=== PATIENT | female | born 1950 | race African-American/Black ===

== ENCOUNTER 2017-01-11 10:15 | Emergency (ER) | payer MEDICAID ==
[~2017-01-11] VITALS: Ht 157.5 cm; Wt 123.0 kg
[~2017-01-11 10:15] MED LIST: ASPI-1035 PO; DICL75TA5 PO; INSU3INS6 SQ; JARDIANCE; LOSA50TA20 PO; PROT20 PO; SIMV20TA6 PO; SITA50TA3 PO
[2017-01-11 11:01] VITALS: BP 123/66
== END 2017-01-11 12:15 | disposition home or self-care (01) ==
LOC: ER 12:11
DX: I10 Essential (primary) hypertension (principal); K59.00 Constipation, unspecified; E11.9 Type 2 diabetes mellitus without complications; M19.90 Unspecified osteoarthritis, unspecified site; Z88.0 Allergy status to penicillin; Z79.82 Long term (current) use of aspirin; Z79.4 Long term (current) use of insulin; Z79.899 Other long term (current) drug therapy
CPT/HCPCS: 99283; Z7610

== ENCOUNTER 2017-09-11 10:16 | Emergency (ER) | payer MEDICARE, MEDICAID ==
[~2017-09-11] VITALS: Ht 152.4 cm; Wt 123.0 kg
[~2017-09-11 10:16] MED LIST changes: -ASPI-1035 PO; +ASPI-1159 PO
[2017-09-11] MEDS ORDERED: ALBUTEROL (0.083%) 2.5MG/3ML NEB HHN STA (11:06)
[2017-09-11] MEDS ORDERED: IPRATROPIUM BROMIDE (0.02%) 0.5MG/2.5ML NEB HHN STA (11:06)
[2017-09-11 11:50] LABS: BASOPHILS % 0.6 % (0.0-2.0); EOSINOPHILS % 2.5 % (0.0-5.0); HEMATOCRIT. 42.8 % (36.0-48.0); HEMOGLOBIN. 13.1 g/dL (12.0-16.0); LYMPHOCYTES % 11.9 % (20.0-50.0); MEAN CORPUSCULAR HEMOGLOBIN 22.5 pg (28.0-32.0); MEAN CORPUSCULAR VOLUME 73.3 fL (81.0-99.0); MEAN PLATELET VOLUME 10.8 fl (7.4-10.4); MONOCYTES % 4.9 % (2.0-8.0); NEUTROPHILS % 80.1 % (40.0-76.0); PLATELET 205 x1000/uL (130-400); RED BLOOD CELL COUNT 5.84 mill/uL (4.2-5.4); RED CELL DISTRIBUTION WIDTH 15.9 % (11.6-14.6)
[2017-09-11 12:07] LABS: CARBON DIOXIDE 36 mEq/L (21-32); CHLORIDE 103 mEq/L (98-107); TROPONIN I < 0.02 ng/mL (0.00-0.04)
[2017-09-11 13:01] VITALS: BP 184/55
[2017-09-11] MEDS ORDERED: METHYLPREDNISOLONE SOD SUCC 125 MG/2 ML VIAL IV ONE (13:30)
[2017-09-11] MEDS ORDERED: PREDNISONE 20MG TABLET PO ONE (13:45)
[2017-09-11] MEDS ORDERED: IPRATROPIUM/ALBUTEROL 0.5-3(2.5)MG/3ML NEB HHN ONE (13:45)
[2017-09-11 14:10] LABS: CLARITY URINE CLEAR (CLEAR); COLOR URINE YELLOW (YELLOW); KETONES URINE NEGATIVE (NEGATIVE); LEUKOCYTE ESTERASE URINE NEGATIVE (NEGATIVE); NITRITE URINE NEGATIVE (NEGATIVE); OCCULT BLOOD URINE 2+ (NEGATIVE); PROTEIN URINE 2+ (NEGATIVE); SPECIFIC GRAVITY URINE 1.015 (1.005-1.030); UROBILINOGEN URINE 0.2 E.U./dL (0.2-1.0)
== END 2017-09-11 15:00 | disposition home or self-care (01) ==
LOC: ER 12:23
DX: J45.909 Unspecified asthma, uncomplicated (principal); I10 Essential (primary) hypertension; E11.9 Type 2 diabetes mellitus without complications; M19.90 Unspecified osteoarthritis, unspecified site; Z88.0 Allergy status to penicillin; Z79.4 Long term (current) use of insulin; Z79.82 Long term (current) use of aspirin
CPT/HCPCS: 36415; 71045; 80053; 81001; 83605; 83690; 83880; 84484; 85025; 85610; 87040; 93005; 94640; 99285; J7512; J7611; J7620

== ENCOUNTER 2020-05-19 05:34 | Inpatient (IN) | payer MEDICARE, MEDICAID ==
[~2020-05-19] VITALS: Ht 157.5 cm; Wt 122.5 kg
[~2020-05-19 05:34] MED LIST changes: -ASPI-1159 PO; +ASPI-1497 PO; +BENA40TA9 PO; +BIMA5DRO TP; +HYDR12.529 PO; +LIRA0.6P SQ; -LOSA50TA20 PO; +LOSA50TA41 PO; +SIMV-43 PO; -SIMV20TA6 PO
[2020-05-19] MEDS ORDERED: ONDANSETRON HCL 4MG/2ML INJ IV STA (06:28)
[2020-05-19] MEDS ORDERED: KETOROLAC 30MG/ML VIAL IV STA (06:28)
[2020-05-19 07:16] LABS: HEMATOCRIT. 37.3 % (36.0-48.0); HEMOGLOBIN. 11.6 g/dL (12.0-16.0); MEAN CORPUSCULAR HEMOGLOBIN 22.6 pg (28.0-32.0); MEAN CORPUSCULAR VOLUME 72.8 fL (81.0-99.0); MEAN PLATELET VOLUME 10.9 fl (7.4-10.4); PLATELET 162 x1000/uL (130-400); RED BLOOD CELL COUNT 5.13 mill/uL (4.2-5.4); RED CELL DISTRIBUTION WIDTH 15.8 % (11.6-14.6)
[2020-05-19 07:27] LABS: CHLORIDE 98 mEq/L (98-107)
[2020-05-19 07:37] LABS: PROTHROMBIN TIME 10.3 sec (9.6-11.0)
[2020-05-19 07:40] LABS: PLATELET ESTIMATE NORMAL
[2020-05-19] MEDS ORDERED: SODIUM CHLORIDE 0.9% 1,000 ML IV ONE (07:54)
[2020-05-19 08:27] LABS: CLARITY URINE CLEAR (CLEAR); COLOR URINE YELLOW (YELLOW); KETONES URINE NEGATIVE (NEGATIVE); LEUKOCYTE ESTERASE URINE NEGATIVE (NEGATIVE); NITRITE URINE NEGATIVE (NEGATIVE); OCCULT BLOOD URINE 2+ (NEGATIVE); PH URINE 5.5 (4.5-8.0); PROTEIN URINE 3+ (NEGATIVE); SPECIFIC GRAVITY URINE 1.018 (1.005-1.030)
[2020-05-19 09:30] LABS: PROTHROMBIN TIME 10.5 sec (9.6-11.0)
[2020-05-19] MEDS ORDERED: LEVOFLOXACIN 750MG PREMIX 150 ML IV ONE (09:30)
[2020-05-19] MEDS ORDERED: DEXTROSE 50% WATER 50ML SYRINGE IV PRN (10:45)
[2020-05-19] MEDS ORDERED: ACETAMINOPHEN 650MG SUPP PR PRN (10:45)
[2020-05-19] MEDS ORDERED: MAGNESIUM/ALUMINUM HYDROXIDE/SIMETHICONE 30ML UDC PO PRN (10:45)
[2020-05-19] MEDS ORDERED: HYDROCODONE/ACETAMINOPHEN 5/325MG TABLET PO PRN (10:45)
[2020-05-19] MEDS ORDERED: LORAZEPAM 0.5MG TABLET PO PRN (10:45)
[2020-05-19] MEDS ORDERED: GUAIFENESIN 200MG/10ML SUGAR FREE UDC PO PRN (10:45)
[2020-05-19] MEDS ORDERED: DOCUSATE SODIUM 100MG CAPSULE PO PRN (10:45)
[2020-05-19] MEDS ORDERED: NA PHOS,M-B/NA PHOS,DI-BA ENEMA 118ML PR PRN (10:45)
[2020-05-19] MEDS ORDERED: DIPHENHYDRAMINE 50MG/ML VIAL IV PRN (10:45)
[2020-05-19] MEDS ORDERED: LEVOFLOXACIN 500MG PREMIX 100 ML IV SCH (10:45)
[2020-05-19] MEDS ORDERED: IPRATROPIUM/ALBUTEROL 0.5-3(2.5)MG/3ML NEB NEB PRN (10:45)
[2020-05-19] MEDS ORDERED: ONDANSETRON HCL 4MG/2ML INJ IV PRN (10:45)
[2020-05-19 11:00] VITALS: BP 157/37
[2020-05-19 11:01] VITALS: BP 157/37
[2020-05-19 12:00] VITALS: BP_SYST 157; BP_SYST 189; BP_DIAS 37
[2020-05-19] MEDS: BLOOD SUGAR DIAGNOSTIC STRIP TEST SCH ×3 (12:14→22:29)
[2020-05-19] MEDS: ENOXAPARIN 30MG/0.3ML SYR SUBCUT SCH ×2 (12:44→22:29)
[2020-05-19] MEDS: INSULIN LISPRO 100 UNITS/ML SUBCUT SCH ×3 (12:45→22:38)
[2020-05-19] MEDS: SODIUM CHLORIDE 0.9% 1,000 ML IV SCH (13:15)
[2020-05-19] MEDS: AMLODIPINE 5MG TABLET PO SCH (15:50)
[2020-05-19 16:00] VITALS: BP 145/46
[2020-05-19 20:00] VITALS: BP 160/68
[2020-05-19] MEDS: FAMOTIDINE 20MG TABLET PO SCH (22:29)
[2020-05-20] VITALS: BP 158/66
[2020-05-20 01:58] LABS: *AMPHETAMINES SCREEN URINE NEGATIVE (NEGATIVE); *BARBITURATES SCREEN URINE NEGATIVE (NEGATIVE); *BENZODIAZEPINES SCREEN URINE NEGATIVE (NEGATIVE); *COCAINE SCREEN URINE NEGATIVE (NEGATIVE)
[2020-05-20 01:59] LABS: CANNABINOID URINE SCREEN NEGATIVE (NEGATIVE); METHADONE URINE SCREEN NEGATIVE (NEGATIVE); OPIATES URINE SCREEN NEGATIVE (NEGATIVE); PHENCYCLIDINE URINE SCREEN NEGATIVE (NEGATIVE)
[2020-05-20] MEDS: SODIUM CHLORIDE 0.9% 1,000 ML IV SCH ×2 (01:59→12:40)
[2020-05-20] MEDS: ACETAMINOPHEN 325MG TABLET PO PRN ×3 (01:59→20:45)
[2020-05-20 04:00] VITALS: BP 141/56
[2020-05-20 05:53] LABS: BASOPHILS % 0.6 % (0.0-2.0); EOSINOPHILS % 5.5 % (0.0-5.0); HEMATOCRIT. 33.3 % (36.0-48.0); HEMOGLOBIN. 10.5 g/dL (12.0-16.0); LYMPHOCYTES % 11.5 % (20.0-50.0); MEAN CORPUSCULAR HEMOGLOBIN 22.8 pg (28.0-32.0); MEAN CORPUSCULAR VOLUME 72.6 fL (81.0-99.0); MEAN PLATELET VOLUME 11.8 fl (7.4-10.4); NEUTROPHILS % 75.4 % (40.0-76.0); PLATELET 153 x1000/uL (130-400); RED BLOOD CELL COUNT 4.58 mill/uL (4.2-5.4); RED CELL DISTRIBUTION WIDTH 16.2 % (11.6-14.6)
[2020-05-20 05:59] LABS: CHLORIDE 104 mEq/L (98-107)
[2020-05-20 06:09] LABS: LDL CHOLESTEROL 50 mg/dL (5-100)
[2020-05-20] MEDS: BLOOD SUGAR DIAGNOSTIC STRIP TEST SCH ×3 (06:09→20:43)
[2020-05-20 06:11] LABS: HDL CHOLESTEROL 50 mg/dL (40-59); T4 FREE 1.26 ng/dL (0.76-1.46)
[2020-05-20 08:00] VITALS: BP 150/60
[2020-05-20] MEDS: INSULIN LISPRO 100 UNITS/ML SUBCUT SCH ×4 (08:48→20:42)
[2020-05-20] MEDS: ENOXAPARIN 30MG/0.3ML SYR SUBCUT SCH ×2 (08:49→20:42)
[2020-05-20] MEDS: AMLODIPINE 5MG TABLET PO SCH (08:49)
[2020-05-20] MEDS ORDERED: LEVOFLOXACIN 750MG PREMIX 150 ML IV SCH (09:00)
[2020-05-20] MEDS ORDERED: ALBU6.7H9 INH (10:58)
[2020-05-20 12:00] VITALS: BP 175/70
[2020-05-20] MEDS: CLONIDINE 0.1MG TABLET PO PRN (12:39)
[2020-05-20] MEDS ORDERED: LATA2.5D2 EACHEYE (13:18)
[2020-05-20] MEDS ORDERED: AZOPT EACHEYE (13:18)
[2020-05-20] MEDS ORDERED: OLOP2.5D5 EACHEYE (13:18)
[2020-05-20 15:41] LABS: BG BASE EXCESS 0.2 mmol/L (-2.0-2.0); BG CARBOXYHEMOGLOBIN 0.6 % (0.5-1.5); BG HCO3 ACT 25.4 mmol/L (22.0-26.0); BG METHEMOGLOBIN 0.3 % (0.0-1.5); BG OXYGEN SATURATION 88.9 % (92.0-98.5); BG OXYHEMOGLOBIN 88.1 % (94.0-97.0); BG PCO2 43.6 mmHg (35.0-45.0); BG PH 7.384 (7.350-7.450); BG PO2 56.2 mmHg (75.0-100.0); BG SAMPLE SITE RIGHT BRACHIAL; BG TOTAL HEMOGLOBIN 11.8 g/dL (12.0-18.0); BG VENT MODE ROOM AIR
[2020-05-20 16:35] VITALS: BP 135/76
[2020-05-20 20:00] VITALS: BP 156/66
[2020-05-20] MEDS: FAMOTIDINE 20MG TABLET PO SCH (20:42)
[2020-05-20] MEDS ORDERED: LATANOPROST 0.005% OPHTH DROPS 2.5ML EACHEYE SCH (21:00)
[2020-05-21] VITALS: BP 144/46
[2020-05-21] MEDS: SODIUM CHLORIDE 0.9% 1,000 ML IV SCH ×2 (02:45→16:05)
[2020-05-21 04:00] VITALS: BP 166/56
[2020-05-21] MEDS: ACETAMINOPHEN 325MG TABLET PO PRN ×2 (04:42→14:01)
[2020-05-21] MEDS: CLONIDINE 0.1MG TABLET PO PRN (04:42)
[2020-05-21] MEDS: BLOOD SUGAR DIAGNOSTIC STRIP TEST SCH ×2 (07:32→12:12)
[2020-05-21 08:13] VITALS: BP 156/43
[2020-05-21] MEDS: INSULIN LISPRO 100 UNITS/ML SUBCUT SCH ×2 (08:32→12:13)
[2020-05-21] MEDS: AMLODIPINE 5MG TABLET PO SCH (08:33)
[2020-05-21] MEDS: ENOXAPARIN 30MG/0.3ML SYR SUBCUT SCH (08:33)
[2020-05-21 09:45] LABS: BASOPHILS % 0.3 % (0.0-2.0); HEMATOCRIT. 31.1 % (36.0-48.0); HEMOGLOBIN. 9.8 g/dL (12.0-16.0); LYMPHOCYTES % 9.6 % (20.0-50.0); MEAN CORPUSCULAR HEMOGLOBIN 22.8 pg (28.0-32.0); MEAN CORPUSCULAR VOLUME 72.2 fL (81.0-99.0); MONOCYTES % 7.3 % (2.0-8.0); NEUTROPHILS % 78.8 % (40.0-76.0); PLATELET 143 x1000/uL (130-400); RED CELL DISTRIBUTION WIDTH 15.7 % (11.6-14.6)
[2020-05-21 10:03] LABS: CHLORIDE 106 mEq/L (98-107)
[2020-05-21 11:58] VITALS: BP 155/47
[2020-05-21] MEDS ORDERED: HYDR-4134 MT (13:02)
[2020-05-21] MEDS ORDERED: AMLO5TAB4 MT (13:02)
[2020-05-21] MEDS ORDERED: METR500T PO (13:02)
[2020-05-21] MEDS ORDERED: CIPR-264 MT (13:02)
[2020-05-21] MEDS ORDERED: HYDRALAZINE HCL 50MG TABLET PO SCH (14:00)
[2020-05-21 14:30] LABS: TOTAL IRON BINDING CAPACITY 297 ug/dL (250-450)
[2020-05-21 15:16] VITALS: BP 154/51
== END 2020-05-21 16:28 | disposition home or self-care (01) | DRG 139 ==
LOC: ER 05:48 → EDBEDREQ 09:22 → EDBEDREQSVC 09:22 → ENRESERV 10:10 → SUPCPDRO 10:45 → 7WST 10:58 → 6WST 05-20 16:27
PROVIDERS: ADMIT Internal Medicine; ATTEND Internal Medicine
DX: J18.9 Pneumonia, unspecified organism (principal); K52.9 Noninfective gastroenteritis and colitis, unspecified; D50.9 Iron deficiency anemia, unspecified; E11.22 Type 2 diabetes mellitus with diabetic chronic kidney disease; E11.51 Type 2 diabetes mellitus with diabetic peripheral angiopathy without gangrene; E11.65 Type 2 diabetes mellitus with hyperglycemia; E78.00 Pure hypercholesterolemia, unspecified; E78.5 Hyperlipidemia, unspecified; E87.1 Hypo-osmolality and hyponatremia; I12.9 Hypertensive chronic kidney disease with stage 1 through stage 4 chronic kidney disease, or unspecified chronic kidney disease; K80.21 Calculus of gallbladder without cholecystitis with obstruction; M19.90 Unspecified osteoarthritis, unspecified site; N18.9 Chronic kidney disease, unspecified; K21.9 Gastro-esophageal reflux disease without esophagitis; R06.03 Acute respiratory distress; E66.2 Morbid (severe) obesity with alveolar hypoventilation; R31.9 Hematuria, unspecified; Z20.828 Contact with and (suspected) exposure to other viral communicable diseases; Z79.84 Long term (current) use of oral hypoglycemic drugs; Z88.0 Allergy status to penicillin; Z88.8 Allergy status to other drugs, medicaments and biological substances; Z79.4 Long term (current) use of insulin; Z79.82 Long term (current) use of aspirin; Z79.899 Other long term (current) drug therapy; Z68.42 Body mass index [BMI] 45.0-49.9, adult; S89.91XA Unspecified injury of right lower leg, initial encounter
CPT/HCPCS: 36415; 36600; 71045; 73560; 74176; 76700; 80053; 80061; 80305; 81003; 82375; 82728; 82805; 82962; 83036; 83540; 83550; 83605; 84145; 84439; 84443; 84484; 85025; 87635; 93005; 93971; 99285; J1650; J1815; J1885; J1956; J2405; J7030

== ENCOUNTER 2020-05-22 06:42 | Inpatient (IN) | payer MEDICARE, MEDICAID ==
[~2020-05-22] VITALS: Ht 157.5 cm; Wt 126.1 kg
[~2020-05-22 06:42] MED LIST changes: +ALBU6.7H9 INH; +AMLO5TAB4 MT; +AZOPT EACHEYE; -BENA40TA9 PO; +CIPR-264 MT; +HYDR-4134 MT; +LATA2.5D2 EACHEYE; -LOSA50TA41 PO; +METR500T PO; +OLOP2.5D5 EACHEYE
[2020-05-22 07:29] LABS: HEMATOCRIT. 30.9 % (36.0-48.0); HEMOGLOBIN. 9.6 g/dL (12.0-16.0); MEAN CORPUSCULAR HEMOGLOBIN 22.8 pg (28.0-32.0); MEAN CORPUSCULAR VOLUME 73.5 fL (81.0-99.0); MEAN PLATELET VOLUME 11.3 fl (7.4-10.4); PLATELET 163 x1000/uL (130-400); RED CELL DISTRIBUTION WIDTH 15.9 % (11.6-14.6)
[2020-05-22 07:35] LABS: CHLORIDE 99 mEq/L (98-107)
[2020-05-22 09:35] VITALS: BP_SYST 150; BP_SYST 175; BP_DIAS 54
[2020-05-22 09:41] LABS: PLATELET ESTIMATE NORMAL
[2020-05-22] MEDS ORDERED: LIDOCAINE HCL/PF 1% 2ML VIAL ONE (10:16)
[2020-05-22] MEDS ORDERED: DEXTROSE 50% WATER 50ML SYRINGE IV PRN (11:00)
[2020-05-22] MEDS ORDERED: ACETAMINOPHEN 650MG/20.3ML UDC PO PRN (11:00)
[2020-05-22] MEDS ORDERED: ACETAMINOPHEN 325MG TABLET PO PRN ×2 (11:15)
[2020-05-22] MEDS ORDERED: CLONIDINE 0.1MG TABLET PO PRN (11:15)
[2020-05-22] MEDS: ENOXAPARIN 30MG/0.3ML SYR SUBCUT SCH ×2 (11:18→21:08)
[2020-05-22] MEDS: BLOOD SUGAR DIAGNOSTIC STRIP TEST SCH ×3 (11:23→21:08)
[2020-05-22] MEDS: ACETAMINOPHEN 325MG TABLET PO PRN ×2 (11:27→18:19)
[2020-05-22] MEDS ORDERED: DEXAMETHASONE 4MG/ML 1ML VIAL IV SCH (11:30)
[2020-05-22 12:00] VITALS: BP 136/33
[2020-05-22] MEDS ORDERED: CEFEPIME HCL 2000MG/VIAL INJ IV ONE (12:45)
[2020-05-22] MEDS ORDERED: ONDANSETRON HCL 4MG/2ML INJ IV PRN (13:00)
[2020-05-22] MEDS: INSULIN LISPRO 100 UNITS/ML SUBCUT SCH ×3 (13:15→21:20)
[2020-05-22] MEDS ORDERED: AZITHROMYCIN 500 MG in DEXT 5% WATER 250 ML IV SCH (14:00)
[2020-05-22 14:38] LABS: BG BASE EXCESS -0.5 mmol/L (-2.0-2.0); BG CARBOXYHEMOGLOBIN 0.7 % (0.5-1.5); BG DEOXYHEMOGLOBIN 38.2 % (0.0-5.0); BG FRACTION INSPIRED OXYGEN 21; BG HCO3 ACT 24.5 mmol/L (22.0-26.0); BG METHEMOGLOBIN 0.3 % (0.0-1.5); BG OXYGEN SATURATION 61.4 % (92.0-98.5); BG OXYHEMOGLOBIN 60.8 % (94.0-97.0); BG PCO2 41.7 mmHg (35.0-45.0); BG PH 7.387 (7.350-7.450); BG PO2 32.3 mmHg (75.0-100.0); BG SAMPLE SITE RIGHT RADIAL; BG TOTAL HEMOGLOBIN 10.3 g/dL (12.0-18.0); BG VENT MODE ROOM AIR
[2020-05-22] MEDS ORDERED: HYDROCODONE/ACETAMINOPHEN 5/325MG TABLET PO PRN (15:45)
[2020-05-22] MEDS ORDERED: DIPHENHYDRAMINE 50MG/ML VIAL IV PRN (15:45)
[2020-05-22] MEDS ORDERED: LORAZEPAM 2MG/ML CPJ IV PRN (15:45)
[2020-05-22] MEDS ORDERED: LACTULOSE 20G/30ML UDC PO PRN (15:45)
[2020-05-22 16:00] VITALS: BP 151/51
[2020-05-22] MEDS: FUROSEMIDE 40MG/4ML VIAL IVP SCH (16:44)
[2020-05-22 17:35] LABS: D-DIMER 2.2 mg/L FEU (<0.50); INR 1.1; PROTHROMBIN TIME 11.5 sec (9.6-11.0)
[2020-05-22] MEDS: LEVOFLOXACIN 500MG PREMIX 100 ML IV SCH (18:00)
[2020-05-22] MEDS ORDERED: LEVOFLOXACIN 500MG PREMIX 100 ML IV SCH (18:00)
[2020-05-22 18:50] LABS: CLARITY URINE CLEAR (CLEAR); COLOR URINE DARK YELLOW (YELLOW); KETONES URINE TRACE (NEGATIVE); LEUKOCYTE ESTERASE URINE TRACE (NEGATIVE); NITRITE URINE NEGATIVE (NEGATIVE); OCCULT BLOOD URINE TRACE (NEGATIVE); PROTEIN URINE 2+ (NEGATIVE); SPECIFIC GRAVITY URINE 1.025 (1.005-1.030)
[2020-05-22 20:34] VITALS: BP 145/49
[2020-05-22 22:17] LABS: BG BASE EXCESS 3.3 mmol/L (-2.0-2.0); BG CARBOXYHEMOGLOBIN 0.8 % (0.5-1.5); BG DEOXYHEMOGLOBIN 13.2 % (0.0-5.0); BG FRACTION INSPIRED OXYGEN 100; BG HCO3 ACT 29.5 mmol/L (22.0-26.0); BG METHEMOGLOBIN 0.1 % (0.0-1.5); BG OXYGEN SATURATION 86.7 % (92.0-98.5); BG OXYHEMOGLOBIN 85.9 % (94.0-97.0); BG PCO2 52.2 mmHg (35.0-45.0); BG PO2 53.1 mmHg (75.0-100.0); BG SAMPLE SITE RIGHT RADIAL; BG TOTAL HEMOGLOBIN 12.1 g/dL (12.0-18.0); BG VENT MODE MASK - NRB
[2020-05-22] MEDS: FUROSEMIDE 40MG/4ML VIAL IVP NR (22:55)
[2020-05-23] VITALS (13 sets, daily range): BP systolic 121–176; BP diastolic 50–72
[2020-05-23] MEDS: DEXAMETHASONE 10 MG/ML VIAL IV SCH ×4 (00:03→17:23)
[2020-05-23] MEDS: FUROSEMIDE 40MG/4ML VIAL IVP SCH ×3 (00:03→15:42)
[2020-05-23] MEDS: LOSARTAN POTASSIUM 50 MG TABLET PO SCH ×2 (00:03→09:38)
[2020-05-23] MEDS: ACETAMINOPHEN 325MG TABLET PO PRN ×2 (05:48→19:37)
[2020-05-23] MEDS: BLOOD SUGAR DIAGNOSTIC STRIP TEST SCH ×4 (07:47→21:00)
[2020-05-23] MEDS: INSULIN LISPRO 100 UNITS/ML SUBCUT SCH ×4 (07:58→23:15)
[2020-05-23 08:56] LABS: HEMATOCRIT. 31.2 % (36.0-48.0); HEMOGLOBIN. 9.9 g/dL (12.0-16.0); MEAN CORPUSCULAR HEMOGLOBIN 23.1 pg (28.0-32.0); MEAN CORPUSCULAR VOLUME 72.8 fL (81.0-99.0); MEAN PLATELET VOLUME 11.1 fl (7.4-10.4); PLATELET 169 x1000/uL (130-400); RED BLOOD CELL COUNT 4.29 mill/uL (4.2-5.4); RED CELL DISTRIBUTION WIDTH 16.1 % (11.6-14.6)
[2020-05-23] MEDS ORDERED: DEXAMETHASONE 4MG/ML 1ML VIAL IV SCH (09:00)
[2020-05-23] MEDS: ENOXAPARIN 30MG/0.3ML SYR SUBCUT SCH ×2 (09:34→23:12)
[2020-05-23 09:44] LABS: BG BASE EXCESS 5.4 mmol/L (-2.0-2.0); BG CARBOXYHEMOGLOBIN 0.2 % (0.5-1.5); BG DEOXYHEMOGLOBIN 23.9 % (0.0-5.0); BG FRACTION INSPIRED OXYGEN 100; BG HCO3 ACT 31.5 mmol/L (22.0-26.0); BG METHEMOGLOBIN 0.1 % (0.0-1.5); BG OXYHEMOGLOBIN 75.8 % (94.0-97.0); BG PCO2 54.1 mmHg (35.0-45.0); BG PH 7.383 (7.350-7.450); BG PO2 41.7 mmHg (75.0-100.0); BG SAMPLE SITE RIGHT RADIAL; BG TOTAL HEMOGLOBIN 10.8 g/dL (12.0-18.0); BG VENT MODE MASK - NRB
[2020-05-23 12:57] LABS: BG BASE EXCESS 3.7 mmol/L (-2.0-2.0); BG CARBOXYHEMOGLOBIN 0.6 % (0.5-1.5); BG DEOXYHEMOGLOBIN 6.2 % (0.0-5.0); BG FRACTION INSPIRED OXYGEN 100; BG HCO3 ACT 28.3 mmol/L (22.0-26.0); BG METHEMOGLOBIN 0.2 % (0.0-1.5); BG OXYGEN SATURATION 93.8 % (92.0-98.5); BG PCO2 42.6 mmHg (35.0-45.0); BG PO2 65.3 mmHg (75.0-100.0); BG SAMPLE SITE RIGHT RADIAL; BG TOTAL HEMOGLOBIN 11.1 g/dL (12.0-18.0)
[2020-05-23 18:44] LABS: PLATELET ESTIMATE NORMAL
[2020-05-23] MEDS ORDERED: INSULIN GLARGINE UD 100 UNITS/ML SYR SUBCUT SCH (22:00)
[2020-05-23] MEDS: FUROSEMIDE 40MG/4ML VIAL IVP NR (23:12)
[2020-05-24] VITALS (13 sets, daily range): BP systolic 131–204; BP diastolic 42–123
[2020-05-24] MEDS ORDERED: VANCOMYCIN 2,000 MG in DEXT 5% WATER 500 ML IV NR ×2
[2020-05-24] MEDS: AZITHROMYCIN 500 MG in DEXT 5% WATER 250 ML IV SCH ×2 (00:37→23:09)
[2020-05-24] MEDS: DEXAMETHASONE 10 MG/ML VIAL IV SCH ×3 (00:37→12:00)
[2020-05-24] MEDS: FUROSEMIDE 40MG/4ML VIAL IVP SCH ×5 (00:38→23:09)
[2020-05-24] MEDS: BLOOD SUGAR DIAGNOSTIC STRIP TEST SCH ×4 (08:22→20:41)
[2020-05-24] MEDS: LOSARTAN POTASSIUM 50 MG TABLET PO SCH (08:56)
[2020-05-24] MEDS: ACETAMINOPHEN 325MG TABLET PO PRN (08:56)
[2020-05-24] MEDS: ENOXAPARIN 30MG/0.3ML SYR SUBCUT SCH ×2 (08:58→20:51)
[2020-05-24] MEDS: INSULIN LISPRO 100 UNITS/ML SUBCUT SCH ×4 (09:00→20:56)
[2020-05-24] MEDS ORDERED: LIDOCAINE HCL/PF 1% 2ML VIAL ONE (09:30)
[2020-05-24] MEDS ORDERED: VANCOMYCIN 1250MG in DEXTROSE 5% WATER 250ML IV SCH (12:00)
[2020-05-24] MEDS ORDERED: LIDOCAINE HCL 1% 20ML VIAL (Pyxis) INJ ONE (13:20)
[2020-05-24 16:19] LABS: BG BASE EXCESS 8.8 mmol/L (-2.0-2.0); BG CARBOXYHEMOGLOBIN 0.3 % (0.5-1.5); BG HCO3 ACT 34.1 mmol/L (22.0-26.0); BG METHEMOGLOBIN 0.1 % (0.0-1.5); BG OXYHEMOGLOBIN 97.6 % (94.0-97.0); BG PCO2 50.3 mmHg (35.0-45.0); BG PH 7.449 (7.350-7.450); BG PO2 117.5 mmHg (75.0-100.0); BG SAMPLE SITE LEFT RADIAL; BG TOTAL HEMOGLOBIN 11.4 g/dL (12.0-18.0); BG VENT MODE MASK - NRB
[2020-05-24 16:24] LABS: HEMATOCRIT. 32.7 % (36.0-48.0); HEMOGLOBIN. 10.4 g/dL (12.0-16.0); MEAN CORPUSCULAR HEMOGLOBIN 22.8 pg (28.0-32.0); MEAN CORPUSCULAR VOLUME 71.6 fL (81.0-99.0); MEAN PLATELET VOLUME 10.8 fl (7.4-10.4); PLATELET 233 x1000/uL (130-400); RED BLOOD CELL COUNT 4.56 mill/uL (4.2-5.4); RED CELL DISTRIBUTION WIDTH 16.1 % (11.6-14.6)
[2020-05-24 16:35] LABS: CHLORIDE 97 mEq/L (98-107)
[2020-05-24 17:13] LABS: NUCLEATED RED BLOOD CELLS 1 /100 WBC; PLATELET ESTIMATE NORMAL
[2020-05-24] MEDS: LEVOFLOXACIN 500MG PREMIX 100 ML IV SCH (17:33)
[2020-05-24] MEDS: METHYLPREDNISOLONE SOD SUCC 40 MG/ML VIAL IV SCH ×2 (17:33→23:09)
[2020-05-24] MEDS: CLONIDINE 0.2MG TABLET PO PRN (20:07)
[2020-05-24] MEDS: VANCOMYCIN 1 G PREMIX 200 ML IV SCH (20:51)
[2020-05-24] MEDS: LATANOPROST 0.005% OPHTH DROPS 2.5ML BOTHEYE SCH (21:14)
[2020-05-24] MEDS: HYDRALAZINE HCL 50MG TABLET PO SCH (21:19)
[2020-05-24] MEDS: INSULIN GLARGINE UD 100 UNITS/ML SYR SUBCUT SCH (22:23)
[2020-05-25] VITALS (12 sets, daily range): BP systolic 98–175; BP diastolic 39–109
[2020-05-25] MEDS: HYDRALAZINE HCL 50MG TABLET PO SCH (06:07)
[2020-05-25] MEDS: ENOXAPARIN 30MG/0.3ML SYR SUBCUT SCH ×2 (08:25→21:02)
[2020-05-25] MEDS: FUROSEMIDE 40MG/4ML VIAL IVP SCH (08:25)
[2020-05-25] MEDS: LOSARTAN POTASSIUM 50 MG TABLET PO SCH (08:25)
[2020-05-25] MEDS: METHYLPREDNISOLONE SOD SUCC 40 MG/ML VIAL IV SCH ×2 (08:25→16:18)
[2020-05-25] MEDS: INSULIN LISPRO 100 UNITS/ML SUBCUT SCH ×4 (08:27→20:54)
[2020-05-25] MEDS: BLOOD SUGAR DIAGNOSTIC STRIP TEST SCH ×4 (08:28→20:14)
[2020-05-25] MEDS: INSULIN GLARGINE UD 100 UNITS/ML SYR SUBCUT SCH ×2 (09:29→21:13)
[2020-05-25 10:36] LABS: BG BASE EXCESS 8.4 mmol/L (-2.0-2.0); BG CARBOXYHEMOGLOBIN 0.3 % (0.5-1.5); BG DEOXYHEMOGLOBIN 4.4 % (0.0-5.0); BG FRACTION INSPIRED OXYGEN 32; BG HCO3 ACT 33.6 mmol/L (22.0-26.0); BG METHEMOGLOBIN 0.3 % (0.0-1.5); BG OXYGEN SATURATION 95.6 % (92.0-98.5); BG PCO2 49.6 mmHg (35.0-45.0); BG PH 7.449 (7.350-7.450); BG PO2 78.5 mmHg (75.0-100.0); BG SAMPLE SITE RIGHT BRACHIAL; BG VENT MODE NASAL CANNULA
[2020-05-25 11:13] LABS: CHLORIDE 93 mEq/L (98-107)
[2020-05-25 11:15] LABS: BASOPHILS % 0.2 % (0.0-2.0); HEMATOCRIT. 33.6 % (36.0-48.0); HEMOGLOBIN. 10.7 g/dL (12.0-16.0); LYMPHOCYTES % 9.2 % (20.0-50.0); MEAN CORPUSCULAR VOLUME 72.1 fL (81.0-99.0); MEAN PLATELET VOLUME 11.4 fl (7.4-10.4); NEUTROPHILS % 87.6 % (40.0-76.0); PLATELET 228 x1000/uL (130-400); RED BLOOD CELL COUNT 4.67 mill/uL (4.2-5.4); RED CELL DISTRIBUTION WIDTH 16.1 % (11.6-14.6)
[2020-05-25] MEDS: LEVOFLOXACIN 250MG TABLET PO SCH (12:58)
[2020-05-25] MEDS ORDERED: HYDRALAZINE HCL 50MG TABLET PO SCH (14:00)
[2020-05-25] MEDS ORDERED: LIDOCAINE HCL/PF 1% 2ML VIAL ONE (14:44)
[2020-05-25] MEDS: ACETAMINOPHEN 325MG TABLET PO PRN (16:18)
[2020-05-25] MEDS: CLONIDINE 0.2MG TABLET PO PRN (16:32)
[2020-05-25] MEDS ORDERED: INSULIN LISPRO 100 UNITS/ML SUBCUT NR (20:45)
[2020-05-25] MEDS: VANCOMYCIN 1 G PREMIX 200 ML IV SCH (21:01)
[2020-05-25] MEDS: AZITHROMYCIN 500 MG TABLET PO SCH (21:01)
[2020-05-25] MEDS: LATANOPROST 0.005% OPHTH DROPS 2.5ML BOTHEYE SCH (21:02)
[2020-05-25] MEDS: HYDRALAZINE HCL 100MG TABLET PO SCH (21:03)
[2020-05-26] VITALS (12 sets, daily range): BP systolic 90–164; BP diastolic 43–95
[2020-05-26] MEDS: ACETAMINOPHEN 325MG TABLET PO PRN ×3 (03:05→20:36)
[2020-05-26] MEDS: METHYLPREDNISOLONE SOD SUCC 40 MG/ML VIAL IV SCH (05:30)
[2020-05-26] MEDS: HYDRALAZINE HCL 100MG TABLET PO SCH ×3 (05:30→22:29)
[2020-05-26 06:10] LABS: BASOPHILS % 0.3 % (0.0-2.0); HEMOGLOBIN. 10.1 g/dL (12.0-16.0); MEAN CORPUSCULAR HEMOGLOBIN 22.5 pg (28.0-32.0); MEAN CORPUSCULAR VOLUME 71.4 fL (81.0-99.0); MEAN PLATELET VOLUME 10.8 fl (7.4-10.4); MONOCYTES % 9.5 % (2.0-8.0); NEUTROPHILS % 81.2 % (40.0-76.0); PLATELET 227 x1000/uL (130-400); RED BLOOD CELL COUNT 4.49 mill/uL (4.2-5.4); RED CELL DISTRIBUTION WIDTH 15.7 % (11.6-14.6)
[2020-05-26] MEDS: BLOOD SUGAR DIAGNOSTIC STRIP TEST SCH ×4 (08:06→20:14)
[2020-05-26] MEDS: INSULIN LISPRO 100 UNITS/ML SUBCUT SCH ×4 (08:11→20:32)
[2020-05-26] MEDS: ENOXAPARIN 30MG/0.3ML SYR SUBCUT SCH ×2 (08:13→20:31)
[2020-05-26] MEDS: LOSARTAN POTASSIUM 50 MG TABLET PO SCH (08:13)
[2020-05-26] MEDS ORDERED: FUROSEMIDE 40MG/4ML VIAL IVP SCH (09:00)
[2020-05-26] MEDS: INSULIN GLARGINE UD 100 UNITS/ML SYR SUBCUT SCH ×2 (09:38→22:30)
[2020-05-26] MEDS ORDERED: LIDOCAINE HCL/PF 1% 2ML VIAL ONE (10:00)
[2020-05-26] MEDS ORDERED: INSULIN GLARGINE UD 100 UNITS/ML SYR SUBCUT SCH ×2 (12:00→22:00)
[2020-05-26 12:01] LABS: BG BASE EXCESS 8.5 mmol/L (-2.0-2.0); BG CARBOXYHEMOGLOBIN 0.2 % (0.5-1.5); BG DEOXYHEMOGLOBIN 10.5 % (0.0-5.0); BG HCO3 ACT 34.3 mmol/L (22.0-26.0); BG METHEMOGLOBIN 0.3 % (0.0-1.5); BG OXYGEN SATURATION 89.4 % (92.0-98.5); BG PCO2 53.1 mmHg (35.0-45.0); BG PH 7.428 (7.350-7.450); BG PO2 57.3 mmHg (75.0-100.0); BG SAMPLE SITE LEFT RADIAL; BG TOTAL HEMOGLOBIN 12.2 g/dL (12.0-18.0); BG VENT MODE ROOM AIR
[2020-05-26] MEDS: LEVOFLOXACIN 250MG TABLET PO SCH (12:01)
[2020-05-26] MEDS ORDERED: INSULIN LISPRO 100 UNITS/ML SUBCUT NR ×2 (12:15→16:00)
[2020-05-26] MEDS ORDERED: SODIUM CHLORIDE 0.9% 500 ML IV ONE (12:15)
[2020-05-26] MEDS ORDERED: INSU100I28 SQ (13:13)
[2020-05-26] MEDS ORDERED: AMLO10TA4 MT (13:13)
[2020-05-26] MEDS ORDERED: IPRA3AMP9 NEB (13:13)
[2020-05-26] MEDS ORDERED: LEVO500T2 PO (13:13)
[2020-05-26] MEDS ORDERED: HYDR100T26 MT (13:13)
[2020-05-26] MEDS: GUAIFENESIN 200MG/10ML SUGAR FREE UDC PO PRN ×2 (13:28→20:30)
[2020-05-26] MEDS: VANCOMYCIN 750 MG PREMIX 150 ML IV SCH (15:37)
[2020-05-26] MEDS: AZITHROMYCIN 500 MG TABLET PO SCH (20:30)
[2020-05-26] MEDS: LATANOPROST 0.005% OPHTH DROPS 2.5ML BOTHEYE SCH (20:30)
[2020-05-27] VITALS (16 sets, daily range): BP systolic 111–153; BP diastolic 43–112
[2020-05-27] MEDS: HYDRALAZINE HCL 100MG TABLET PO SCH ×3 (05:32→23:04)
[2020-05-27 07:57] LABS: HEMATOCRIT 34.4 % (36.0-48.0); HEMOGLOBIN 10.9 g/dL (12.0-16.0); MEAN CORPUSCULAR HEMOGLOBIN 22.8 pg (28.0-32.0); MEAN CORPUSCULAR VOLUME 71.9 fL (81.0-99.0); PLATELET 188 x1000/uL (130-400); RED BLOOD CELL COUNT 4.78 mill/uL (4.2-5.4); RED CELL DISTRIBUTION WIDTH 15.9 % (11.6-14.6)
[2020-05-27] MEDS: BLOOD SUGAR DIAGNOSTIC STRIP TEST SCH ×4 (07:57→20:34)
[2020-05-27] MEDS: INSULIN LISPRO 100 UNITS/ML SUBCUT SCH ×5 (07:57→20:45)
[2020-05-27] MEDS: GUAIFENESIN 200MG/10ML SUGAR FREE UDC PO PRN (08:14)
[2020-05-27] MEDS: LOSARTAN POTASSIUM 50 MG TABLET PO SCH (08:14)
[2020-05-27] MEDS: ACETAMINOPHEN 325MG TABLET PO PRN (08:14)
[2020-05-27] MEDS: ENOXAPARIN 30MG/0.3ML SYR SUBCUT SCH ×2 (08:14→20:44)
[2020-05-27] MEDS ORDERED: METHYLPREDNISOLONE SOD SUCC 40 MG/ML VIAL IV SCH (09:00)
[2020-05-27] MEDS: VANCOMYCIN 750 MG PREMIX 150 ML IV SCH ×2 (10:38→13:15)
[2020-05-27] MEDS: INSULIN GLARGINE UD 100 UNITS/ML SYR SUBCUT SCH ×2 (10:39→23:05)
[2020-05-27] MEDS: LEVOFLOXACIN 250MG TABLET PO SCH (10:43)
[2020-05-27] MEDS ORDERED: SODIUM CHLORIDE 0.9% 250 ML IV SCH (11:15)
[2020-05-27] MEDS ORDERED: METOPROLOL TARTRATE 25MG TABLET PO SCH (11:30)
[2020-05-27] MEDS ORDERED: METOPROLOL TARTRATE 25MG TABLET PO ONE (11:30)
[2020-05-27] MEDS ORDERED: METOPROLOL TARTRATE 5MG/5ML VIAL IV SCH (13:00)
[2020-05-27] MEDS ORDERED: METOPROLOL TARTRATE 5MG/5ML VIAL IV PRN (13:30)
[2020-05-27] MEDS: SODIUM CHLORIDE 0.9% 500 ML IV SCH ×2 (15:10→16:09)
[2020-05-27 18:01] LABS: CREATINE KINASE MB FRACTION 3.2 ng/mL (0.5-3.6)
[2020-05-27] MEDS: METOPROLOL TARTRATE 25MG TABLET PO SCH (20:43)
[2020-05-27] MEDS: AZITHROMYCIN 500 MG TABLET PO SCH (20:43)
[2020-05-27] MEDS: LATANOPROST 0.005% OPHTH DROPS 2.5ML BOTHEYE SCH (20:45)
[2020-05-28] VITALS (10 sets, daily range): BP systolic 100–160; BP diastolic 55–88
[2020-05-28] MEDS: HYDRALAZINE HCL 100MG TABLET PO SCH ×2 (06:27→15:33)
[2020-05-28 07:05] LABS: HEMATOCRIT 35.4 % (36.0-48.0); HEMOGLOBIN 11.1 g/dL (12.0-16.0); MEAN CORPUSCULAR HEMOGLOBIN 22.6 pg (28.0-32.0); MEAN CORPUSCULAR VOLUME 71.7 fL (81.0-99.0); PLATELET 237 x1000/uL (130-400); RED BLOOD CELL COUNT 4.93 mill/uL (4.2-5.4); RED CELL DISTRIBUTION WIDTH 15.7 % (11.6-14.6)
[2020-05-28 07:38] LABS: VITAMIN B12 SERUM 1405 pg/mL (211-911)
[2020-05-28] MEDS: INSULIN LISPRO 100 UNITS/ML SUBCUT SCH ×2 (08:00→12:52)
[2020-05-28] MEDS: BLOOD SUGAR DIAGNOSTIC STRIP TEST SCH ×2 (08:23→12:46)
[2020-05-28] MEDS: ENOXAPARIN 30MG/0.3ML SYR SUBCUT SCH (08:52)
[2020-05-28] MEDS: LOSARTAN POTASSIUM 50 MG TABLET PO SCH (08:53)
[2020-05-28] MEDS: METOPROLOL TARTRATE 25MG TABLET PO SCH (08:53)
[2020-05-28] MEDS: LEVOFLOXACIN 250MG TABLET PO SCH (10:52)
[2020-05-28] MEDS: INSULIN GLARGINE UD 100 UNITS/ML SYR SUBCUT SCH (10:53)
[2020-05-28] MEDS ORDERED: METO25TA6 PO (14:36)
== END 2020-05-28 18:01 | disposition left against medical advice (07) | DRG 133 ==
LOC: ER 06:42 → EDBEDREQ 07:18 → EDBEDREQTM 07:18 → EDBEDREQSVC 07:18 → ENRESERV 07:39 → 7WST 09:55 → 5EST 05-23 03:25
PROVIDERS: ADMIT Internal Medicine; ATTEND Internal Medicine
PROC: 5A09357 Assistance with Respiratory Ventilation, Less than 24 Consecutive Hours, Continuous Positive Airway Pressure (ICD-10-PCS; principal; 2020-05-24)
PROC: 05H433Z Insertion of Infusion Device into Left Innominate Vein, Percutaneous Approach (ICD-10-PCS; 2020-05-24)
PROC: B54NZZA Ultrasonography of Left Upper Extremity Veins, Guidance (ICD-10-PCS; 2020-05-24)
DX: J96.01 Acute respiratory failure with hypoxia (principal); I13.0 Hypertensive heart and chronic kidney disease with heart failure and stage 1 through stage 4 chronic kidney disease, or unspecified chronic kidney disease; E87.70 Fluid overload, unspecified; E11.22 Type 2 diabetes mellitus with diabetic chronic kidney disease; N17.9 Acute kidney failure, unspecified; N18.9 Chronic kidney disease, unspecified; D64.9 Anemia, unspecified; E11.65 Type 2 diabetes mellitus with hyperglycemia; E78.00 Pure hypercholesterolemia, unspecified; E78.5 Hyperlipidemia, unspecified; I47.1 Supraventricular tachycardia; I50.33 Acute on chronic diastolic (congestive) heart failure; I70.0 Atherosclerosis of aorta; M19.90 Unspecified osteoarthritis, unspecified site; T50.2X5A Adverse effect of carbonic-anhydrase inhibitors, benzothiadiazides and other diuretics, initial encounter; K57.90 Diverticulosis of intestine, part unspecified, without perforation or abscess without bleeding; Z20.828 Contact with and (suspected) exposure to other viral communicable diseases; Z79.4 Long term (current) use of insulin; Z79.82 Long term (current) use of aspirin; Z79.899 Other long term (current) drug therapy; Z68.43 Body mass index [BMI] 50.0-59.9, adult; Y92.89 Other specified places as the place of occurrence of the external cause; E66.2 Morbid (severe) obesity with alveolar hypoventilation; J18.9 Pneumonia, unspecified organism; N39.0 Urinary tract infection, site not specified
CPT/HCPCS: 36415; 36600; 71045; 71250; 76770; 76937; 78580; 80048; 80053; 80202; 81003; 82375; 82550; 82553; 82607; 82805; 82962; 83036; 83605; 83735; 83880; 84484; 85025; 85027; 85379; 87070; 87426; 87449; 87635; 93005; 93306; 93970; 94618; 99291; C1725; J0456; J1100; J1650; J1815; J1940; J1956; J2405; J2920; J3370; J3490; J7040; J7050; J7060; U0003-CS

== ENCOUNTER 2020-12-17 22:48 | Emergency (ER) | payer MEDICARE, MEDICAID ==
[~2020-12-17] VITALS: Ht 157.5 cm; Wt 123.0 kg
[~2020-12-17 22:48] MED LIST changes: +AMLO10TA4 MT; -AMLO5TAB4 MT; -CIPR-264 MT; -HYDR-4134 MT; +HYDR100T26 MT; -HYDR12.529 PO; +INSU100I28 SQ; -INSU3INS6 SQ; +IPRA3AMP9 NEB; -JARDIANCE; +LATA2.5D14 EACHEYE; -LATA2.5D2 EACHEYE; +LEVO500T2 PO; +METO25TA6 PO; -METR500T PO
[2020-12-17] MEDS ORDERED: PREDNISONE 20MG TABLET PO STA (23:14)
[2020-12-17] MEDS ORDERED: IPRATROPIUM BROMIDE (0.02%) 0.5MG/2.5ML NEB HHN STA (23:14)
[2020-12-17 23:33] LABS: CHLORIDE 106 mEq/L (98-107)
[2020-12-17 23:34] LABS: BASOPHILS % 1.1 % (0.0-2.0); EOSINOPHILS % 2.2 % (0.0-5.0); HEMATOCRIT. 30.7 % (36.0-48.0); HEMOGLOBIN. 9.4 g/dL (12.0-16.0); LYMPHOCYTES % 14.4 % (20.0-50.0); MEAN CORPUSCULAR HEMOGLOBIN 21.1 pg (28.0-32.0); MEAN CORPUSCULAR VOLUME 69.1 fL (81.0-99.0); MONOCYTES % 4.3 % (2.0-8.0); RED BLOOD CELL COUNT 4.45 mill/uL (4.2-5.4); RED CELL DISTRIBUTION WIDTH 20.5 % (11.6-14.6)
[2020-12-17 23:57] LABS: MEAN PLATELET VOLUME 11.5 fl (7.4-10.4); PLATELET 203 x1000/uL (130-400)
[2020-12-17 23:58] LABS: PLATELET ESTIMATE NORMAL
[2020-12-18] MEDS ORDERED: FUROSEMIDE 40MG/4ML VIAL IVP ONE
[2020-12-18 00:02] LABS: PROTHROMBIN TIME 10.5 sec (9.6-11.0)
[2020-12-18 00:17] LABS: BG BASE EXCESS -1.2 mmol/L (-2.0-2.0); BG FRACTION INSPIRED OXYGEN 40; BG PCO2 32.8 mmHg (35.0-45.0); BG PH 7.444 (7.350-7.450); BG PO2 129.1 mmHg (75.0-100.0); BG SAMPLE SITE LEFT RADIAL; BG VENT MODE NASAL CANNULA
[2020-12-18] MEDS ORDERED: CEFTRIAXONE 1 G PREMIX 50 ML IV ONE (00:30)
[2020-12-18] MEDS: ALBUTEROL (0.083%) 2.5MG/3ML NEB HHN SCH ×3 (00:36→01:28)
[2020-12-18] MEDS ORDERED: LEVOFLOXACIN 750MG PREMIX 150 ML IV NR (00:45)
[2020-12-18] MEDS ORDERED: AZITHROMYCIN 500 MG in DEXT 5% WATER 250 ML IV SCH (01:00)
[2020-12-18 13:14] VITALS: BP 160/82
== END 2020-12-18 13:16 | disposition short-term general hospital (02) ==
LOC: ER 22:48
DX: I11.0 Hypertensive heart disease with heart failure (principal); I50.9 Heart failure, unspecified; E11.9 Type 2 diabetes mellitus without complications; E78.00 Pure hypercholesterolemia, unspecified; J18.9 Pneumonia, unspecified organism; Z20.822 Contact with and (suspected) exposure to COVID-19
CPT/HCPCS: 36415; 36600; 71045; 80053; 82805; 83880; 84484; 85025; 85610; 87426; 93005; 94640; 96365; 96368; 96375; 99285; J0456; J1940; J1956; J7060; J7512; Z7610

== ENCOUNTER 2022-08-02 07:51 | Emergency (ER) | payer MEDICARE, MEDICAID ==
[~2022-08-02] VITALS: Ht 162.6 cm; Wt 100.0 kg
[~2022-08-02 07:51] MED LIST changes: +ALBU6.7H3 INH; -ALBU6.7H9 INH
[2022-08-02] MEDS ORDERED: IPRATROPIUM BROMIDE (0.02%) 0.5MG/2.5ML NEB HHN STA ×2 (07:53→07:58)
[2022-08-02] MEDS ORDERED: METHYLPREDNISOLONE SOD SUCC 125 MG/2 ML VIAL IV STA ×2 (07:53→07:58)
[2022-08-02] MEDS ORDERED: ALBUTEROL (0.083%) 2.5MG/3ML NEB HHN STA ×2 (07:53→07:58)
[2022-08-02 09:04] LABS: HEMOGLOBIN. 10.3 g/dL (12.0-16.0); MEAN CORPUSCULAR HEMOGLOBIN 22.5 pg (28.0-32.0); MEAN CORPUSCULAR VOLUME 74.4 fL (81.0-99.0); MEAN PLATELET VOLUME 10.6 fl (7.4-10.4); PLATELET 222 x1000/uL (130-400); RED BLOOD CELL COUNT 4.57 mill/uL (4.2-5.4); RED CELL DISTRIBUTION WIDTH 16.3 % (11.6-14.6)
[2022-08-02 09:24] LABS: BG BASE EXCESS 4.6 mmol/L (-2.0-2.0); BG CARBOXYHEMOGLOBIN 0.4 % (0.5-1.5); BG DEOXYHEMOGLOBIN 0.8 % (0.0-5.0); BG FRACTION INSPIRED OXYGEN 100; BG HCO3 ACT 30.4 mmol/L (22.0-26.0); BG METHEMOGLOBIN 0.3 % (0.0-1.5); BG OXYGEN SATURATION 99.2 % (92.0-98.5); BG OXYHEMOGLOBIN 98.5 % (94.0-97.0); BG PH 7.393 (7.350-7.450); BG PO2 464.9 mmHg (75.0-100.0); BG SAMPLE SITE RIGHT BRACHIAL; BG TOTAL HEMOGLOBIN 10.6 g/dL (12.0-18.0); BG TOTAL RESPIRATORY RATE 25 b/min; BG VENT MODE MASK - BIPAP
[2022-08-02 10:47] LABS: PLATELET ESTIMATE NORMAL
[2022-08-02 10:53] LABS: CHLORIDE 111 mEq/L (98-107)
[2022-08-02 11:03] LABS: ETHANOL BLOOD < 10 mg/dL
[2022-08-02] MEDS ORDERED: POTASSIUM CHLORIDE 20MEQ TABLET SR PO NR (11:30)
[2022-08-02] MEDS ORDERED: FUROSEMIDE 40MG/4ML VIAL IVP NR (11:30)
[2022-08-02] MEDS ORDERED: ALBU6.7H3 INH (12:17)
[2022-08-02] MEDS ORDERED: POTA-204 MT (12:17)
[2022-08-02 12:57] VITALS: BP 187/74
[2022-08-06] MEDS ORDERED: HYDR100T26 PO (14:49)
[2022-08-06] MEDS ORDERED: METO25TA6 PO (14:49)
[2022-08-06] MEDS ORDERED: DILT60TA35 PO (14:49)
[2022-08-06] MEDS ORDERED: APIX5TAB PO (14:49)
[2022-08-06] MEDS ORDERED: AMLO5TAB88 PO (14:49)
[2022-08-06] MEDS ORDERED: AZIT500T8 PO (14:49)
== END 2022-08-02 13:00 | disposition left against medical advice (07) ==
LOC: ER 07:51
DX: J44.1 Chronic obstructive pulmonary disease with (acute) exacerbation (principal); R06.03 Acute respiratory distress; I11.0 Hypertensive heart disease with heart failure; I50.9 Heart failure, unspecified; E87.6 Hypokalemia
CPT/HCPCS: 36415; 36600; 71045; 80053; 80320; 82375; 82805; 83605; 83880; 84484; 85025; 87040; 93005; 94660; 96374; 96375; 99291; J1940; J2930; G0480

== ENCOUNTER 2022-08-04 00:05 | Inpatient (IN) | payer MEDICARE, MEDICAID ==
[~2022-08-04] VITALS: Ht 157.5 cm; Wt 119.0 kg
[2022-08-04] VITALS (9 sets, daily range): BP systolic 162–207; BP diastolic 54–91
[~2022-08-04 00:05] MED LIST changes: +POTA-204 MT
[2022-08-04] MEDS ORDERED: IPRATROPIUM BROMIDE (0.02%) 0.5MG/2.5ML NEB HHN STA (00:11)
[2022-08-04] MEDS ORDERED: METHYLPREDNISOLONE SOD SUCC 125 MG/2 ML VIAL IV STA (00:11)
[2022-08-04] MEDS ORDERED: ALBUTEROL (0.083%) 2.5MG/3ML NEB HHN STA (00:11)
[2022-08-04] MEDS ORDERED: MAGNESIUM 2 G PREMIX 50 ML IV STA (00:13)
[2022-08-04 00:57] LABS: BASOPHILS % 0.5 % (0.0-2.0); EOSINOPHILS % 2.2 % (0.0-5.0); HEMATOCRIT. 35.7 % (36.0-48.0); HEMOGLOBIN. 10.7 g/dL (12.0-16.0); LYMPHOCYTES % 8.9 % (20.0-50.0); MEAN CORPUSCULAR HEMOGLOBIN 22.6 pg (28.0-32.0); MEAN CORPUSCULAR VOLUME 75.5 fL (81.0-99.0); MONOCYTES % 4.3 % (2.0-8.0); NEUTROPHILS % 84.1 % (40.0-76.0); RED BLOOD CELL COUNT 4.73 mill/uL (4.2-5.4); RED CELL DISTRIBUTION WIDTH 16.8 % (11.6-14.6)
[2022-08-04 01:05] LABS: CHLORIDE 107 mEq/L (98-107)
[2022-08-04] MEDS ORDERED: FUROSEMIDE 20MG/2ML VIAL IVP ONE (01:30)
[2022-08-04] MEDS ORDERED: ACETAMINOPHEN 325MG TABLET PO ONE (01:45)
[2022-08-04 02:03] LABS: MEAN PLATELET VOLUME 10.4 fl (7.4-10.4); PLATELET 247 x1000/uL (130-400)
[2022-08-04] MEDS ORDERED: FUROSEMIDE 40MG/4ML VIAL IVP SCH (10:45)
[2022-08-04 11:09] LABS: BG BASE EXCESS 3.8 mmol/L (-2.0-2.0); BG CARBOXYHEMOGLOBIN 0.5 % (0.5-1.5); BG DEOXYHEMOGLOBIN 6.7 % (0.0-5.0); BG HCO3 ACT 30.1 mmol/L (22.0-26.0); BG METHEMOGLOBIN 0.1 % (0.0-1.5); BG OXYGEN SATURATION 93.3 % (92.0-98.5); BG OXYHEMOGLOBIN 92.7 % (94.0-97.0); BG PCO2 53.8 mmHg (35.0-45.0); BG PH 7.365 (7.350-7.450); BG PO2 70.7 mmHg (75.0-100.0); BG SAMPLE SITE LEFT RADIAL; BG VENT MODE MASK - BIPAP
[2022-08-04] MEDS: HYDRALAZINE 20MG/ML VIAL IV PRN (11:16)
[2022-08-04] MEDS: ACETAMINOPHEN 325MG TABLET PO PRN ×2 (11:17→23:13)
[2022-08-04] MEDS ORDERED: DEXTROSE 50% WATER 50ML SYRINGE IV PRN (11:30)
[2022-08-04] MEDS: BLOOD SUGAR DIAGNOSTIC STRIP TEST SCH ×3 (12:31→21:45)
[2022-08-04] MEDS: INSULIN LISPRO 100 UNITS/ML SUBCUT SCH ×3 (12:44→22:58)
[2022-08-04] MEDS: METHYLPREDNISOLONE SOD SUCC 125 MG/2 ML VIAL IV SCH ×2 (15:26→23:00)
[2022-08-04] MEDS: AMLODIPINE 5MG TABLET PO SCH (15:27)
[2022-08-04] MEDS: METOPROLOL TARTRATE 25MG TABLET PO SCH ×2 (16:31→21:45)
[2022-08-04] MEDS: APIXABAN 5 MG TABLET PO SCH (16:37)
[2022-08-04] MEDS: HYDRALAZINE HCL 100MG TABLET PO SCH ×2 (16:53→23:00)
[2022-08-04] MEDS: FUROSEMIDE 40MG/4ML VIAL IVP SCH (18:18)
[2022-08-04] MEDS: IPRATROPIUM/ALBUTEROL 0.5-3(2.5)MG/3ML NEB HHN SCH (21:11)
[2022-08-05] VITALS (10 sets, daily range): BP systolic 131–176; BP diastolic 45–95
[2022-08-05] MEDS: IPRATROPIUM/ALBUTEROL 0.5-3(2.5)MG/3ML NEB HHN SCH ×6 (00:12→20:43)
[2022-08-05] MEDS: METHYLPREDNISOLONE SOD SUCC 125 MG/2 ML VIAL IV SCH ×3 (06:20→21:52)
[2022-08-05] MEDS: FUROSEMIDE 40MG/4ML VIAL IVP SCH ×2 (06:20→17:30)
[2022-08-05] MEDS: HYDRALAZINE HCL 100MG TABLET PO SCH ×3 (06:20→21:51)
[2022-08-05] MEDS: AMLODIPINE 5MG TABLET PO SCH (08:22)
[2022-08-05] MEDS: APIXABAN 5 MG TABLET PO SCH ×2 (08:23→17:29)
[2022-08-05] MEDS: METOPROLOL TARTRATE 25MG TABLET PO SCH ×2 (08:23→21:52)
[2022-08-05] MEDS: BLOOD SUGAR DIAGNOSTIC STRIP TEST SCH ×4 (08:34→21:53)
[2022-08-05] MEDS: INSULIN LISPRO 100 UNITS/ML SUBCUT SCH ×4 (08:42→21:51)
[2022-08-05] MEDS ORDERED: FUROSEMIDE 40MG/4ML VIAL IVP SCH (09:00)
[2022-08-05] MEDS ORDERED: ENOXAPARIN 30MG/0.3ML SYR SUBCUT SCH (09:30)
[2022-08-05 12:56] LABS: HEMATOCRIT. 32.7 % (36.0-48.0); HEMOGLOBIN. 10.2 g/dL (12.0-16.0); MEAN CORPUSCULAR HEMOGLOBIN 22.8 pg (28.0-32.0); MEAN CORPUSCULAR VOLUME 73.3 fL (81.0-99.0); MEAN PLATELET VOLUME 10.8 fl (7.4-10.4); PLATELET 255 x1000/uL (130-400); RED BLOOD CELL COUNT 4.46 mill/uL (4.2-5.4); RED CELL DISTRIBUTION WIDTH 17.3 % (11.6-14.6)
[2022-08-05 14:11] LABS: NUCLEATED RED BLOOD CELLS 1 /100 WBC; PLATELET ESTIMATE NORMAL
[2022-08-05 14:39] LABS: CHLORIDE 100 mEq/L (98-107)
[2022-08-05] MEDS ORDERED: DIGOXIN 500MCG/2ML AMP IV NR (20:15)
[2022-08-05] MEDS: AZITHROMYCIN 500 MG TABLET PO SCH (21:51)
[2022-08-05] MEDS: DILTIAZEM HCL 30MG TABLET PO SCH (21:52)
[2022-08-06] VITALS (13 sets, daily range): BP systolic 91–162; BP diastolic 44–94
[2022-08-06] MEDS: IPRATROPIUM/ALBUTEROL 0.5-3(2.5)MG/3ML NEB HHN SCH ×7 (00:22→20:34)
[2022-08-06] MEDS: BLOOD SUGAR DIAGNOSTIC STRIP TEST SCH ×4 (06:23→21:00)
[2022-08-06] MEDS: DILTIAZEM HCL 30MG TABLET PO SCH (06:34)
[2022-08-06] MEDS: FUROSEMIDE 40MG/4ML VIAL IVP SCH (06:34)
[2022-08-06] MEDS: METHYLPREDNISOLONE SOD SUCC 125 MG/2 ML VIAL IV SCH ×2 (06:34→13:46)
[2022-08-06] MEDS: HYDRALAZINE HCL 100MG TABLET PO SCH ×3 (06:40→22:55)
[2022-08-06] MEDS: METOPROLOL TARTRATE 25MG TABLET PO SCH ×2 (09:37→22:46)
[2022-08-06] MEDS: AZITHROMYCIN 500 MG TABLET PO SCH (09:38)
[2022-08-06] MEDS: AMLODIPINE 5MG TABLET PO SCH (09:38)
[2022-08-06] MEDS: INSULIN LISPRO 100 UNITS/ML SUBCUT SCH ×4 (09:43→23:00)
[2022-08-06] MEDS: APIXABAN 5 MG TABLET PO SCH ×2 (09:44→16:55)
[2022-08-06] MEDS: ACETAMINOPHEN 325MG TABLET PO PRN ×2 (11:12→22:57)
[2022-08-06] MEDS: DILTIAZEM HCL 60MG TABLET PO SCH ×2 (13:45→22:55)
[2022-08-06] MEDS: DORZOLAMIDE 2% OPHTH 10 ML BOTTLE BOTHEYE SCH ×2 (13:46→22:56)
[2022-08-06] MEDS: BRIMONIDINE 0.2% OPHTH DROPS 5ML BOTHEYE SCH ×2 (13:47→22:56)
[2022-08-06] MEDS ORDERED: APIX5TAB PO (14:49)
[2022-08-06] MEDS ORDERED: AMLO5TAB88 PO (14:49)
[2022-08-06] MEDS ORDERED: AZIT500T8 PO (14:49)
[2022-08-06] MEDS ORDERED: DILT60TA35 PO (14:49)
[2022-08-06] MEDS ORDERED: HYDR100T26 PO (14:49)
[2022-08-06] MEDS ORDERED: METO25TA6 PO (14:49)
[2022-08-06 16:45] LABS: HEMATOCRIT. 33.7 % (36.0-48.0); HEMOGLOBIN. 10.3 g/dL (12.0-16.0); MEAN CORPUSCULAR VOLUME 75.3 fL (81.0-99.0); MEAN PLATELET VOLUME 10.8 fl (7.4-10.4); PLATELET 221 x1000/uL (130-400); RED BLOOD CELL COUNT 4.48 mill/uL (4.2-5.4); RED CELL DISTRIBUTION WIDTH 17.4 % (11.6-14.6)
[2022-08-06] MEDS: PREDNISONE 20MG TABLET PO SCH (16:58)
[2022-08-06 17:36] LABS: CHLORIDE 99 mEq/L (98-107)
[2022-08-06 19:04] LABS: PLATELET ESTIMATE NORMAL
[2022-08-06] MEDS: INSULIN GLARGINE 100 UNITS/ML SUBCUT SCH (23:02)
[2022-08-07] VITALS (16 sets, daily range): BP systolic 125–181; BP diastolic 27–134
[2022-08-07] MEDS: IPRATROPIUM/ALBUTEROL 0.5-3(2.5)MG/3ML NEB HHN SCH ×7 (00:52→23:58)
[2022-08-07] MEDS: DORZOLAMIDE 2% OPHTH 10 ML BOTTLE BOTHEYE SCH ×3 (06:27→22:22)
[2022-08-07] MEDS: BRIMONIDINE 0.2% OPHTH DROPS 5ML BOTHEYE SCH ×3 (06:27→22:22)
[2022-08-07] MEDS: HYDRALAZINE HCL 100MG TABLET PO SCH ×3 (06:28→22:19)
[2022-08-07] MEDS: DILTIAZEM HCL 60MG TABLET PO SCH ×3 (06:29→22:08)
[2022-08-07] MEDS: BLOOD SUGAR DIAGNOSTIC STRIP TEST SCH ×4 (07:30→21:00)
[2022-08-07] MEDS: AMLODIPINE 5MG TABLET PO SCH (08:33)
[2022-08-07] MEDS: APIXABAN 5 MG TABLET PO SCH ×2 (08:33→17:00)
[2022-08-07] MEDS: METOPROLOL TARTRATE 25MG TABLET PO SCH (08:33)
[2022-08-07] MEDS: INSULIN LISPRO 100 UNITS/ML SUBCUT SCH ×4 (08:36→22:10)
[2022-08-07] MEDS: PREDNISONE 20MG TABLET PO SCH (08:36)
[2022-08-07] MEDS: AZITHROMYCIN 500 MG TABLET PO SCH (08:37)
[2022-08-07] MEDS: ACETAMINOPHEN 325MG TABLET PO PRN ×2 (09:38→22:09)
[2022-08-07] MEDS: INSULIN GLARGINE 100 UNITS/ML SUBCUT SCH (09:47)
[2022-08-07 16:30] LABS: HEMATOCRIT. 33.4 % (36.0-48.0); HEMOGLOBIN. 10.2 g/dL (12.0-16.0); MEAN CORPUSCULAR HEMOGLOBIN 22.3 pg (28.0-32.0); MEAN CORPUSCULAR VOLUME 73.3 fL (81.0-99.0); MEAN PLATELET VOLUME 10.9 fl (7.4-10.4); PLATELET 267 x1000/uL (130-400); RED BLOOD CELL COUNT 4.56 mill/uL (4.2-5.4)
[2022-08-07 17:02] LABS: CHLORIDE 98 mEq/L (98-107)
[2022-08-07 17:51] LABS: PLATELET ESTIMATE NORMAL
[2022-08-07] MEDS ORDERED: INSULIN GLARGINE 100 UNITS/ML SUBCUT SCH (22:00)
[2022-08-07] MEDS: HYDRALAZINE 20MG/ML VIAL IV PRN (22:08)
[2022-08-08] VITALS (8 sets, daily range): BP systolic 126–158; BP diastolic 51–105
[2022-08-08] MEDS: IPRATROPIUM/ALBUTEROL 0.5-3(2.5)MG/3ML NEB HHN SCH ×2 (04:02→09:50)
[2022-08-08] MEDS: DORZOLAMIDE 2% OPHTH 10 ML BOTTLE BOTHEYE SCH (05:22)
[2022-08-08] MEDS: BRIMONIDINE 0.2% OPHTH DROPS 5ML BOTHEYE SCH (05:23)
[2022-08-08] MEDS: DILTIAZEM HCL 60MG TABLET PO SCH (05:23)
[2022-08-08] MEDS: HYDRALAZINE 20MG/ML VIAL IV PRN (05:23)
[2022-08-08] MEDS: HYDRALAZINE HCL 100MG TABLET PO SCH (05:26)
[2022-08-08] MEDS: BLOOD SUGAR DIAGNOSTIC STRIP TEST SCH ×2 (08:00→12:30)
[2022-08-08] MEDS: INSULIN LISPRO 100 UNITS/ML SUBCUT SCH ×2 (08:00→13:51)
[2022-08-08] MEDS ORDERED: FUROSEMIDE 40MG TABLET PO SCH (09:00)
[2022-08-08] MEDS: PREDNISONE 20MG TABLET PO SCH (09:10)
[2022-08-08] MEDS: APIXABAN 5 MG TABLET PO SCH (09:10)
[2022-08-08] MEDS: AZITHROMYCIN 500 MG TABLET PO SCH (09:10)
[2022-08-08] MEDS: AMLODIPINE 5MG TABLET PO SCH (09:11)
== END 2022-08-08 14:05 | disposition home or self-care (01) | DRG 291 ==
LOC: ER 00:05 → 5EST 01:26 → ENRESERV 07:54 → 5EST 20:08
PROVIDERS: ADMIT Family Medicine; ATTEND Family Medicine
PROC: 5A09357 Assistance with Respiratory Ventilation, Less than 24 Consecutive Hours, Continuous Positive Airway Pressure (ICD-10-PCS; principal; 2022-08-04)
PROC: 5A09357 Assistance with Respiratory Ventilation, Less than 24 Consecutive Hours, Continuous Positive Airway Pressure (ICD-10-PCS; 2022-08-06)
DX: I13.0 Hypertensive heart and chronic kidney disease with heart failure and stage 1 through stage 4 chronic kidney disease, or unspecified chronic kidney disease (principal); I50.43 Acute on chronic combined systolic (congestive) and diastolic (congestive) heart failure; J96.21 Acute and chronic respiratory failure with hypoxia; J44.1 Chronic obstructive pulmonary disease with (acute) exacerbation; N17.9 Acute kidney failure, unspecified; Z68.42 Body mass index [BMI] 45.0-49.9, adult; E11.22 Type 2 diabetes mellitus with diabetic chronic kidney disease; I48.91 Unspecified atrial fibrillation; N18.9 Chronic kidney disease, unspecified; D64.9 Anemia, unspecified; M19.90 Unspecified osteoarthritis, unspecified site; D72.829 Elevated white blood cell count, unspecified; E66.9 Obesity, unspecified; I34.2 Nonrheumatic mitral (valve) stenosis; G47.33 Obstructive sleep apnea (adult) (pediatric); Z79.01 Long term (current) use of anticoagulants; Z79.4 Long term (current) use of insulin; Z99.81 Dependence on supplemental oxygen; Z88.0 Allergy status to penicillin; Z79.899 Other long term (current) drug therapy; Z79.82 Long term (current) use of aspirin
CPT/HCPCS: 36415; 36600; 71045; 80048; 80053; 80320; 82375; 82805; 82962; 83036; 83605; 83880; 84145; 84484; 85025; 93005; 93306; 94640; 94660; 96374; 96375; 99291; C1893; J0360; J1160; J1815; J1940; J2930; J3475; J7512; G0480

== ENCOUNTER 2022-08-16 11:06 | Inpatient (IN) | payer MEDICARE, MEDICAID ==
[~2022-08-16] VITALS: Ht 167.6 cm; Wt 116.6 kg
[~2022-08-16 11:06] MED LIST changes: -AMLO10TA4 MT; +AMLO5TAB88 PO; +APIX5TAB PO; +AZIT500T8 PO; -DICL75TA5 PO; +DILT60TA35 PO; +HYDR100T26 PO; -LEVO500T2 PO; -LIRA0.6P SQ; -POTA-204 MT; -PROT20 PO; -SITA50TA3 PO
[2022-08-16] MEDS ORDERED: IPRATROPIUM/ALBUTEROL 0.5-3(2.5)MG/3ML NEB HHN ONE ×2 (12:30→14:00)
[2022-08-16] MEDS ORDERED: METHYLPREDNISOLONE SOD SUCC 125 MG/2 ML VIAL IV ONE (12:30)
[2022-08-16 12:42] LABS: HEMATOCRIT. 28.4 % (36.0-48.0); HEMOGLOBIN. 8.5 g/dL (12.0-16.0); MEAN CORPUSCULAR HEMOGLOBIN 22.5 pg (28.0-32.0); MEAN CORPUSCULAR VOLUME 74.9 fL (81.0-99.0); MEAN PLATELET VOLUME 10.9 fl (7.4-10.4); PLATELET 192 x1000/uL (130-400); RED CELL DISTRIBUTION WIDTH 17.9 % (11.6-14.6)
[2022-08-16 13:26] LABS: PLATELET ESTIMATE NORMAL
[2022-08-16 14:25] LABS: BG FRACTION INSPIRED OXYGEN 50; BG HCO3 ACT 32.4 mmol/L (22.0-26.0); BG METHEMOGLOBIN 0.1 % (0.0-1.5); BG OXYHEMOGLOBIN 95.9 % (94.0-97.0); BG PCO2 57.9 mmHg (35.0-45.0); BG PH 7.366 (7.350-7.450); BG PO2 95.1 mmHg (75.0-100.0); BG SAMPLE SITE RIGHT RADIAL; BG TOTAL HEMOGLOBIN 9.6 g/dL (12.0-18.0); BG VENT MODE MASK - BIPAP
[2022-08-16 16:04] LABS: CHLORIDE 104 mEq/L (98-107)
[2022-08-16 20:00] VITALS: BP 171/86
[2022-08-16] MEDS ORDERED: DEXTROSE 50% WATER 50ML SYRINGE IV PRN (20:00)
[2022-08-16] MEDS ORDERED: CLONIDINE 0.1MG TABLET PO PRN (20:00)
[2022-08-16] MEDS ORDERED: ONDANSETRON HCL 4MG/2ML INJ IV PRN (20:00)
[2022-08-16] MEDS ORDERED: DOCUSATE SODIUM 100MG CAPSULE PO PRN (20:00)
[2022-08-16] MEDS ORDERED: ACETAMINOPHEN 325MG TABLET PO PRN (20:00)
[2022-08-16] MEDS: BLOOD SUGAR DIAGNOSTIC STRIP TEST SCH (21:00)
[2022-08-16 21:46] LABS: TOTAL IRON BINDING CAPACITY 306 ug/dL (250-450)
[2022-08-16 22:00] VITALS: BP 169/79
[2022-08-16] MEDS ORDERED: KCL 20MEQ/100ML PREMIX 100 ML IV NR (22:00)
[2022-08-16 22:15] LABS: FOLIC ACID (FOLATE) SERUM 12.1 ng/mL (>5.38)
[2022-08-16] MEDS: INSULIN LISPRO 100 UNITS/ML SUBCUT SCH (22:19)
[2022-08-16 23:07] VITALS: BP 142/79
[2022-08-16 23:40] LABS: CLARITY URINE CLEAR (CLEAR); COLOR URINE YELLOW (YELLOW); KETONES URINE NEGATIVE (NEGATIVE); LEUKOCYTE ESTERASE URINE NEGATIVE (NEGATIVE); NITRITE URINE NEGATIVE (NEGATIVE); OCCULT BLOOD URINE NEGATIVE (NEGATIVE); PROTEIN URINE 1+ (NEGATIVE); SPECIFIC GRAVITY URINE 1.016 (1.005-1.030); UROBILINOGEN URINE 0.2 E.U./dL (0.2-1.0)
[2022-08-17] VITALS (11 sets, daily range): BP systolic 82–169; BP diastolic 51–85
[2022-08-17] MEDS: IPRATROPIUM/ALBUTEROL 0.5-3(2.5)MG/3ML NEB HHN PRN ×2 (00:08→17:37)
[2022-08-17 00:13] LABS: *AMPHETAMINES SCREEN URINE NEGATIVE (NEGATIVE); *BARBITURATES SCREEN URINE NEGATIVE (NEGATIVE); *BENZODIAZEPINES SCREEN URINE NEGATIVE (NEGATIVE); *COCAINE SCREEN URINE NEGATIVE (NEGATIVE); CANNABINOID URINE SCREEN NEGATIVE (NEGATIVE); METHADONE URINE SCREEN NEGATIVE (NEGATIVE); OPIATES URINE SCREEN NEGATIVE (NEGATIVE); PHENCYCLIDINE URINE SCREEN NEGATIVE (NEGATIVE)
[2022-08-17 01:47] LABS: CREATINE KINASE MB FRACTION 2.7 ng/mL (0.5-3.6)
[2022-08-17] MEDS: IPRATROPIUM/ALBUTEROL 0.5-3(2.5)MG/3ML NEB HHN SCH ×4 (02:28→19:57)
[2022-08-17] MEDS: DILTIAZEM HCL 60MG TABLET PO SCH ×3 (06:19→20:46)
[2022-08-17] MEDS: HYDRALAZINE HCL 100MG TABLET PO SCH ×3 (06:20→20:46)
[2022-08-17 06:59] LABS: HEMATOCRIT. 29.3 % (36.0-48.0); HEMOGLOBIN. 8.8 g/dL (12.0-16.0); MEAN CORPUSCULAR HEMOGLOBIN 22.4 pg (28.0-32.0); MEAN CORPUSCULAR VOLUME 74.4 fL (81.0-99.0); PLATELET 196 x1000/uL (130-400); RED BLOOD CELL COUNT 3.94 mill/uL (4.2-5.4); RED CELL DISTRIBUTION WIDTH 17.9 % (11.6-14.6)
[2022-08-17 07:49] LABS: CREATINE KINASE MB FRACTION 2.8 ng/mL (0.5-3.6)
[2022-08-17] MEDS: BLOOD SUGAR DIAGNOSTIC STRIP TEST SCH ×4 (08:21→20:46)
[2022-08-17] MEDS: FUROSEMIDE 40MG/4ML VIAL IVP SCH (08:47)
[2022-08-17] MEDS: ASPIRIN 81MG EC TABLET PO SCH (08:48)
[2022-08-17] MEDS: AMLODIPINE 5MG TABLET PO SCH (08:48)
[2022-08-17] MEDS: METOPROLOL TARTRATE 25MG TABLET PO SCH ×2 (08:48→20:46)
[2022-08-17] MEDS: AZITHROMYCIN 500 MG TABLET PO SCH (08:48)
[2022-08-17] MEDS: INSULIN LISPRO 100 UNITS/ML SUBCUT SCH ×4 (08:59→20:47)
[2022-08-17] MEDS ORDERED: METHYLPREDNISOLONE SOD SUCC 40 MG/ML VIAL IV SCH (09:00)
[2022-08-17] MEDS ORDERED: MEDICATION NOT ON FORMULARY EA (Brinzolamide (Azopt) 1 DROP) EACHEYE SCH (09:00)
[2022-08-17] MEDS ORDERED: APIXABAN 5 MG TABLET PO SCH (09:00)
[2022-08-17] MEDS ORDERED: OLOPATADINE HCL EACHEYE SCH (09:00)
[2022-08-17 10:46] LABS: CHLORIDE 103 mEq/L (98-107)
[2022-08-17 11:12] LABS: HDL CHOLESTEROL 78 mg/dL (40-59); LDL CHOLESTEROL 41 mg/dL (5-100); PHOSPHORUS 2.3 mg/dL (2.5-4.9); T4 FREE 1.29 ng/dL (0.76-1.46)
[2022-08-17] MEDS: NAPHAZOLINE HCL/PHENIR MAL OPHTH SOLN 15ML EACHEYE SCH ×2 (12:32→17:28)
[2022-08-17] MEDS ORDERED: HEPARIN 25,000 UNITS PREMIX 250 ML IV SCH (12:45)
[2022-08-17 14:17] LABS: CREATINE KINASE MB FRACTION 2.5 ng/mL (0.5-3.6)
[2022-08-17 16:15] LABS: INR 1.1; PARTIAL THROMBOPLASTIN TIME 27.8 sec (23.4-31.0); PROTHROMBIN TIME 11.6 sec (9.6-11.0)
[2022-08-17] MEDS ORDERED: HEPARIN 60 UNITS/KG BOLUS IV NR (17:00)
[2022-08-17] MEDS: DORZOLAMIDE 2% OPHTH 10 ML BOTTLE EACHEYE SCH (17:28)
[2022-08-17] MEDS ORDERED: WARFARIN SODIUM 5MG TABLET PO SCH (18:00)
[2022-08-17] MEDS: HEPARIN 25,000 UNITS PREMIX 250 ML IV SCH (18:42)
[2022-08-17] MEDS: LATANOPROST 0.005% OPHTH DROPS 2.5ML EACHEYE SCH (20:45)
[2022-08-17] MEDS: ATORVASTATIN CALCIUM 20MG TABLET PO SCH (20:46)
[2022-08-17] MEDS ORDERED: HEPARIN BOLUS PRN aPTT <30 IV (23:00)
[2022-08-17] MEDS: GUAIFENESIN 200MG/10ML SUGAR FREE UDC PO PRN (23:28)
[2022-08-18] VITALS (12 sets, daily range): BP systolic 110–150; BP diastolic 20–94
[2022-08-18] MEDS: IPRATROPIUM/ALBUTEROL 0.5-3(2.5)MG/3ML NEB HHN SCH ×4 (02:13→21:43)
[2022-08-18] MEDS: HYDRALAZINE HCL 100MG TABLET PO SCH ×3 (05:56→22:34)
[2022-08-18] MEDS: DILTIAZEM HCL 60MG TABLET PO SCH ×3 (05:56→22:32)
[2022-08-18] MEDS: BLOOD SUGAR DIAGNOSTIC STRIP TEST SCH ×4 (07:30→21:00)
[2022-08-18 08:21] LABS: HEMATOCRIT. 28.2 % (36.0-48.0); HEMOGLOBIN. 8.7 g/dL (12.0-16.0); MEAN CORPUSCULAR HEMOGLOBIN 22.9 pg (28.0-32.0); MEAN CORPUSCULAR VOLUME 74.3 fL (81.0-99.0); MEAN PLATELET VOLUME 10.9 fl (7.4-10.4); PLATELET 206 x1000/uL (130-400); RED BLOOD CELL COUNT 3.79 mill/uL (4.2-5.4); RED CELL DISTRIBUTION WIDTH 17.9 % (11.6-14.6)
[2022-08-18 08:44] LABS: CHLORIDE 100 mEq/L (98-107)
[2022-08-18] MEDS ORDERED: OSELTAMIVIR 75MG CAPSULE PO SCH ×2 (09:00)
[2022-08-18] MEDS: GUAIFENESIN 200MG/10ML SUGAR FREE UDC PO PRN ×2 (09:15→15:21)
[2022-08-18] MEDS: FUROSEMIDE 40MG/4ML VIAL IVP SCH (09:15)
[2022-08-18] MEDS: AZITHROMYCIN 500 MG TABLET PO SCH (09:16)
[2022-08-18] MEDS: ASPIRIN 81MG EC TABLET PO SCH (09:17)
[2022-08-18] MEDS: AMLODIPINE 5MG TABLET PO SCH (09:17)
[2022-08-18] MEDS: METOPROLOL TARTRATE 25MG TABLET PO SCH ×2 (09:18→22:33)
[2022-08-18] MEDS: DORZOLAMIDE 2% OPHTH 10 ML BOTTLE EACHEYE SCH ×2 (09:19→17:27)
[2022-08-18] MEDS: NAPHAZOLINE HCL/PHENIR MAL OPHTH SOLN 15ML EACHEYE SCH ×2 (09:20→17:27)
[2022-08-18] MEDS: INSULIN LISPRO 100 UNITS/ML SUBCUT SCH ×4 (09:39→22:38)
[2022-08-18 10:14] LABS: BG BASE EXCESS 4.7 mmol/L (-2.0-2.0); BG CARBOXYHEMOGLOBIN 0.2 % (0.5-1.5); BG FRACTION INSPIRED OXYGEN 50; BG METHEMOGLOBIN 0.1 % (0.0-1.5); BG OXYHEMOGLOBIN 95.7 % (94.0-97.0); BG PCO2 42.2 mmHg (35.0-45.0); BG PH 7.455 (7.350-7.450); BG PO2 83.5 mmHg (75.0-100.0); BG SAMPLE SITE RIGHT RADIAL; BG TOTAL HEMOGLOBIN 9.5 g/dL (12.0-18.0); BG TOTAL RESPIRATORY RATE 22 b/min; BG VENT MODE MASK - BIPAP
[2022-08-18 10:30] LABS: PLATELET ESTIMATE NORMAL
[2022-08-18] MEDS: ACETAMINOPHEN 325MG TABLET PO PRN ×2 (10:31→17:30)
[2022-08-18 10:50] LABS: PLATELET ESTIMATE NORMAL
[2022-08-18 13:43] LABS: INR 1.1; PROTHROMBIN TIME 11.3 sec (9.6-11.0)
[2022-08-18] MEDS: HEPARIN 25,000 UNITS PREMIX 250 ML IV SCH (14:57)
[2022-08-18] MEDS: HEPARIN BOLUS PRN aPTT 30-44 IV (15:26)
[2022-08-18] MEDS ORDERED: WARFARIN SODIUM 5MG TABLET PO NR (18:00)
[2022-08-18] MEDS: ATORVASTATIN CALCIUM 20MG TABLET PO SCH (22:32)
[2022-08-18] MEDS: OSELTAMIVIR 30MG CAPSULE PO SCH (22:34)
[2022-08-18] MEDS: LATANOPROST 0.005% OPHTH DROPS 2.5ML EACHEYE SCH (22:35)
[2022-08-19] VITALS (32 sets, daily range): BP systolic 79–154; BP diastolic 29–100
[2022-08-19] MEDS: ACETAMINOPHEN 325MG TABLET PO PRN (00:32)
[2022-08-19] MEDS: IPRATROPIUM/ALBUTEROL 0.5-3(2.5)MG/3ML NEB HHN SCH ×4 (03:07→20:26)
[2022-08-19] MEDS: GUAIFENESIN 200MG/10ML SUGAR FREE UDC PO PRN (04:35)
[2022-08-19] MEDS: DILTIAZEM HCL 60MG TABLET PO SCH (05:27)
[2022-08-19] MEDS: HYDRALAZINE HCL 100MG TABLET PO SCH ×3 (05:28→21:36)
[2022-08-19 05:49] LABS: HEMATOCRIT. 27.2 % (36.0-48.0); HEMOGLOBIN. 8.2 g/dL (12.0-16.0); MEAN CORPUSCULAR HEMOGLOBIN 22.3 pg (28.0-32.0); MEAN CORPUSCULAR VOLUME 73.6 fL (81.0-99.0); MEAN PLATELET VOLUME 11.2 fl (7.4-10.4); PLATELET 199 x1000/uL (130-400); RED CELL DISTRIBUTION WIDTH 18.3 % (11.6-14.6)
[2022-08-19 05:59] LABS: INR 1.1; PARTIAL THROMBOPLASTIN TIME 38.8 sec (23.4-31.0); PROTHROMBIN TIME 11.8 sec (9.6-11.0)
[2022-08-19] MEDS: BLOOD SUGAR DIAGNOSTIC STRIP TEST SCH ×4 (07:30→21:11)
[2022-08-19 07:39] LABS: CHLORIDE 96 mEq/L (98-107)
[2022-08-19] MEDS: HEPARIN BOLUS PRN aPTT 30-44 IV (08:29)
[2022-08-19] MEDS: OSELTAMIVIR 30MG CAPSULE PO SCH ×2 (09:06→22:29)
[2022-08-19] MEDS: AZITHROMYCIN 500 MG TABLET PO SCH (09:06)
[2022-08-19] MEDS: METOPROLOL TARTRATE 25MG TABLET PO SCH ×2 (09:06→21:34)
[2022-08-19] MEDS: ASPIRIN 81MG EC TABLET PO SCH (09:06)
[2022-08-19] MEDS: AMLODIPINE 5MG TABLET PO SCH (09:06)
[2022-08-19] MEDS ORDERED: FUROSEMIDE 40MG/4ML VIAL IVP SCH (09:15)
[2022-08-19] MEDS: INSULIN LISPRO 100 UNITS/ML SUBCUT SCH ×4 (09:32→21:00)
[2022-08-19] MEDS ORDERED: METHYLPREDNISOLONE SOD SUCC 125 MG/2 ML VIAL IV NR (10:00)
[2022-08-19 10:23] LABS: BG BASE EXCESS 5.9 mmol/L (-2.0-2.0); BG CARBOXYHEMOGLOBIN 0.8 % (0.5-1.5); BG DEOXYHEMOGLOBIN 14.9 % (0.0-5.0); BG METHEMOGLOBIN 0.3 % (0.0-1.5); BG OXYGEN SATURATION 84.9 % (92.0-98.5); BG PH 7.375 (7.350-7.450); BG PO2 52.4 mmHg (75.0-100.0); BG SAMPLE SITE RIGHT BRACHIAL; BG VENT MODE MASK - BIPAP
[2022-08-19] MEDS ORDERED: FUROSEMIDE 40MG/4ML VIAL IV NR (10:47)
[2022-08-19 12:09] LABS: PLATELET ESTIMATE NORMAL
[2022-08-19] MEDS: DORZOLAMIDE 2% OPHTH 10 ML BOTTLE EACHEYE SCH ×2 (13:14→18:34)
[2022-08-19] MEDS: METHYLPREDNISOLONE SOD SUCC 125 MG/2 ML VIAL IV SCH ×2 (14:16→21:35)
[2022-08-19 14:51] LABS: BG BASE EXCESS 6.9 mmol/L (-2.0-2.0); BG CARBOXYHEMOGLOBIN 0.4 % (0.5-1.5); BG DEOXYHEMOGLOBIN 13.9 % (0.0-5.0); BG HCO3 ACT 34.2 mmol/L (22.0-26.0); BG METHEMOGLOBIN 0.1 % (0.0-1.5); BG OXYHEMOGLOBIN 85.6 % (94.0-97.0); BG PH 7.326 (7.350-7.450); BG PO2 53.7 mmHg (75.0-100.0); BG SAMPLE SITE RIGHT RADIAL; BG TOTAL HEMOGLOBIN 9.1 g/dL (12.0-18.0); BG VENT MODE MASK - BIPAP
[2022-08-19] MEDS ORDERED: NOREPINEPHRINE 8 MG in DEXT 5% WATER 242 ML IV PRN (16:15)
[2022-08-19] MEDS: FENTANYL 2500MCG/250ML PMX 250 ML IV NR (17:25)
[2022-08-19 17:37] LABS: BG BASE EXCESS 6.7 mmol/L (-2.0-2.0); BG CARBOXYHEMOGLOBIN 0.8 % (0.5-1.5); BG DEOXYHEMOGLOBIN 12.7 % (0.0-5.0); BG HCO3 ACT 32.5 mmol/L (22.0-26.0); BG METHEMOGLOBIN 0.1 % (0.0-1.5); BG OXYGEN SATURATION 87.2 % (92.0-98.5); BG OXYHEMOGLOBIN 86.4 % (94.0-97.0); BG PCO2 54.3 mmHg (35.0-45.0); BG PH 7.395 (7.350-7.450); BG PO2 53.7 mmHg (75.0-100.0); BG SAMPLE SITE RIGHT BRACHIAL; BG TOTAL HEMOGLOBIN 8.2 g/dL (12.0-18.0); BG VENT MODE VENT- PRVC
[2022-08-19] MEDS ORDERED: WARFARIN SODIUM 3MG TABLET PO NR (18:00)
[2022-08-19] MEDS: HEPARIN 25,000 UNITS PREMIX 250 ML IV SCH ×2 (18:28→23:00)
[2022-08-19] MEDS ORDERED: LEVOFLOXACIN 750MG PREMIX 150 ML IV SCH (20:30)
[2022-08-19] MEDS: LATANOPROST 0.005% OPHTH DROPS 2.5ML EACHEYE SCH (21:31)
[2022-08-19] MEDS: FUROSEMIDE 100MG/10ML VIAL IVP SCH (21:32)
[2022-08-19] MEDS: ATORVASTATIN CALCIUM 20MG TABLET PO SCH (21:33)
[2022-08-19] MEDS: NAPHAZOLINE HCL/PHENIR MAL OPHTH SOLN 15ML EACHEYE SCH ×2 (22:02→22:04)
[2022-08-20] VITALS (97 sets, daily range): BP systolic 49–168; BP diastolic 32–106
[2022-08-20] MEDS: IPRATROPIUM/ALBUTEROL 0.5-3(2.5)MG/3ML NEB HHN SCH ×4 (01:40→20:30)
[2022-08-20] MEDS: HEPARIN BOLUS PRN aPTT 30-44 IV (02:52)
[2022-08-20] MEDS: FENTANYL 2500MCG/250ML PMX 250 ML IV NR ×2 (04:26→16:15)
[2022-08-20 05:14] LABS: CHLORIDE 100 mEq/L (98-107)
[2022-08-20 05:15] LABS: HEMATOCRIT. 24.6 % (36.0-48.0); HEMOGLOBIN. 7.2 g/dL (12.0-16.0); MEAN CORPUSCULAR VOLUME 78.3 fL (81.0-99.0); MEAN PLATELET VOLUME 11.9 fl (7.4-10.4); PLATELET 160 x1000/uL (130-400); RED BLOOD CELL COUNT 3.14 mill/uL (4.2-5.4); RED CELL DISTRIBUTION WIDTH 18.5 % (11.6-14.6)
[2022-08-20 05:24] LABS: INR 1.8; PROTHROMBIN TIME 18.9 sec (9.6-11.0)
[2022-08-20] MEDS: HYDRALAZINE HCL 100MG TABLET PO SCH ×3 (05:57→21:56)
[2022-08-20] MEDS: PROPOFOL 10MG/ML 100ML 100 ML IV PRN ×2 (06:18→09:04)
[2022-08-20] MEDS: HEPARIN 25,000 UNITS PREMIX 250 ML IV SCH ×2 (06:26→14:06)
[2022-08-20] MEDS: METHYLPREDNISOLONE SOD SUCC 125 MG/2 ML VIAL IV SCH ×3 (06:28→21:56)
[2022-08-20] MEDS: BLOOD SUGAR DIAGNOSTIC STRIP TEST SCH ×4 (07:37→20:37)
[2022-08-20] MEDS: INSULIN LISPRO 100 UNITS/ML SUBCUT SCH ×4 (07:38→20:53)
[2022-08-20] MEDS ORDERED: MIDAZOLAM 100MG/100ML PMX 100 ML IV PRN (08:00)
[2022-08-20] MEDS ORDERED: LIDOCAINE HCL/PF 1% 10 MG/ML 5ML VIAL ONE (08:09)
[2022-08-20 08:57] LABS: BG BASE EXCESS 6.3 mmol/L (-2.0-2.0); BG CARBOXYHEMOGLOBIN 0.1 % (0.5-1.5); BG DEOXYHEMOGLOBIN 6.5 % (0.0-5.0); BG FRACTION INSPIRED OXYGEN 100; BG HCO3 ACT 31.1 mmol/L (22.0-26.0); BG METHEMOGLOBIN 0.4 % (0.0-1.5); BG OXYGEN SATURATION 93.5 % (92.0-98.5); BG PCO2 46.9 mmHg (35.0-45.0); BG PH 7.439 (7.350-7.450); BG PO2 73.5 mmHg (75.0-100.0); BG SAMPLE SITE RIGHT RADIAL; BG TOTAL HEMOGLOBIN 7.5 g/dL (12.0-18.0); BG VENT MODE PRVC
[2022-08-20] MEDS: AMLODIPINE 5MG TABLET PO SCH (09:00)
[2022-08-20] MEDS: METOPROLOL TARTRATE 25MG TABLET PO SCH ×2 (09:00→20:52)
[2022-08-20] MEDS: OSELTAMIVIR 30MG CAPSULE PO SCH ×2 (09:02→20:52)
[2022-08-20] MEDS: FUROSEMIDE 100MG/10ML VIAL IVP SCH ×2 (09:02→20:51)
[2022-08-20] MEDS: DORZOLAMIDE 2% OPHTH 10 ML BOTTLE EACHEYE SCH ×2 (09:03→17:37)
[2022-08-20] MEDS: NAPHAZOLINE HCL/PHENIR MAL OPHTH SOLN 15ML EACHEYE SCH ×2 (09:03→17:37)
[2022-08-20] MEDS: MIDAZOLAM HCL 100 MG in SODIUM CHLORIDE 0.9% 100 ML IV PRN (09:05)
[2022-08-20] MEDS: ASPIRIN 81MG EC TABLET PO SCH (09:06)
[2022-08-20] MEDS: PHENYLEPHRINE 100 MG in DEXT 5% WATER 240 ML IV PRN (11:20)
[2022-08-20 13:13] LABS: PLATELET ESTIMATE NORMAL
[2022-08-20] MEDS ORDERED: DEXTROSE 50% WATER 50ML SYRINGE IV PRN (17:30)
[2022-08-20] MEDS ORDERED: WARFARIN SODIUM 3MG TABLET PO NR (18:00)
[2022-08-20] MEDS ORDERED: VANCOMYCIN 2,000 MG in DEXT 5% WATER 500 ML IV SCH (20:30)
[2022-08-20] MEDS: AZTREONAM 2 GM in DEXT 5% WATER 100 ML IV SCH (20:50)
[2022-08-20] MEDS: LATANOPROST 0.005% OPHTH DROPS 2.5ML EACHEYE SCH (20:51)
[2022-08-20] MEDS: ATORVASTATIN CALCIUM 20MG TABLET PO SCH (20:51)
[2022-08-21] VITALS (93 sets, daily range): BP systolic 73–187; BP diastolic 29–165
[2022-08-21] MEDS: MIDAZOLAM HCL 100 MG in SODIUM CHLORIDE 0.9% 100 ML IV PRN ×2 (01:19→15:13)
[2022-08-21] MEDS: IPRATROPIUM/ALBUTEROL 0.5-3(2.5)MG/3ML NEB HHN SCH ×4 (01:43→20:30)
[2022-08-21] MEDS: FENTANYL 2500MCG/250ML PMX 250 ML IV NR ×2 (03:21→09:52)
[2022-08-21 05:28] LABS: INR 2.3
[2022-08-21] MEDS: HYDRALAZINE HCL 100MG TABLET PO SCH ×3 (06:10→23:03)
[2022-08-21] MEDS: METHYLPREDNISOLONE SOD SUCC 125 MG/2 ML VIAL IV SCH ×3 (06:10→22:07)
[2022-08-21] MEDS: PHENYLEPHRINE 100 MG in DEXT 5% WATER 240 ML IV PRN ×2 (06:55→22:14)
[2022-08-21] MEDS: BLOOD SUGAR DIAGNOSTIC STRIP TEST SCH ×4 (08:06→21:00)
[2022-08-21 08:17] LABS: BG BASE EXCESS 5.7 mmol/L (-2.0-2.0); BG CARBOXYHEMOGLOBIN 0.5 % (0.5-1.5); BG DEOXYHEMOGLOBIN 8.8 % (0.0-5.0); BG FRACTION INSPIRED OXYGEN 100; BG HCO3 ACT 30.3 mmol/L (22.0-26.0); BG METHEMOGLOBIN 0.2 % (0.0-1.5); BG OXYGEN SATURATION 91.1 % (92.0-98.5); BG OXYHEMOGLOBIN 90.5 % (94.0-97.0); BG PH 7.446 (7.350-7.450); BG PO2 64.4 mmHg (75.0-100.0); BG SAMPLE SITE RIGHT RADIAL; BG TOTAL HEMOGLOBIN 7.9 g/dL (12.0-18.0); BG VENT MODE VENT - PRVC
[2022-08-21] MEDS ORDERED: DEXTROSE 50% WATER 50ML SYRINGE IV PRN (08:30)
[2022-08-21] MEDS: ASPIRIN 81MG TABLET PO SCH (08:51)
[2022-08-21] MEDS: OSELTAMIVIR 30MG CAPSULE PO SCH ×2 (08:51→20:29)
[2022-08-21] MEDS: AZTREONAM 2 GM in DEXT 5% WATER 100 ML IV SCH ×2 (08:51→20:27)
[2022-08-21] MEDS: FUROSEMIDE 100MG/10ML VIAL IVP SCH ×2 (08:51→20:25)
[2022-08-21] MEDS: AMLODIPINE 5MG TABLET PO SCH (08:52)
[2022-08-21] MEDS: INSULIN LISPRO 100 UNITS/ML SUBCUT SCH ×4 (08:54→23:04)
[2022-08-21] MEDS: METOPROLOL TARTRATE 25MG TABLET PO SCH ×2 (09:00→22:08)
[2022-08-21] MEDS: DORZOLAMIDE 2% OPHTH 10 ML BOTTLE EACHEYE SCH ×2 (09:02→17:30)
[2022-08-21] MEDS: NAPHAZOLINE HCL/PHENIR MAL OPHTH SOLN 15ML EACHEYE SCH ×2 (09:03→17:30)
[2022-08-21] MEDS ORDERED: AMIODARONE HCL 50MG/ML 3ML VIAL IV ONE (09:30)
[2022-08-21] MEDS ORDERED: INSULIN GLARGINE 100 UNITS/ML SUBCUT SCH (10:00)
[2022-08-21] MEDS ORDERED: AMIODARONE HCL 150 MG in DEXT 5% WATER 100 ML IV NR (10:00)
[2022-08-21] MEDS: HEPARIN 25,000 UNITS PREMIX 250 ML IV SCH (10:05)
[2022-08-21] MEDS: AMIODARONE HCL 900 MG in DEXT 5% WATER 482 ML IV PRN (10:26)
[2022-08-21] MEDS ORDERED: LEVOFLOXACIN 750MG PREMIX 150 ML IV SCH (11:00)
[2022-08-21] MEDS ORDERED: INSULIN LISPRO 100 UNITS/ML SUBCUT NR (11:30)
[2022-08-21] MEDS: FENTANYL 2500MCG/250ML PMX 250 ML IV PRN ×3 (12:54→23:57)
[2022-08-21] MEDS: ACETAMINOPHEN 325MG TABLET PO PRN (15:01)
[2022-08-21 15:54] LABS: HEMATOCRIT. 24.1 % (36.0-48.0); HEMOGLOBIN. 7.2 g/dL (12.0-16.0); MEAN PLATELET VOLUME 11.3 fl (7.4-10.4); PLATELET 233 x1000/uL (130-400); RED BLOOD CELL COUNT 3.29 mill/uL (4.2-5.4); RED CELL DISTRIBUTION WIDTH 17.9 % (11.6-14.6)
[2022-08-21 16:12] LABS: CHLORIDE 98 mEq/L (98-107)
[2022-08-21] MEDS ORDERED: VASOPRESSIN 20 UNIT in SODIUM CHLORIDE 0.9% 99 ML IV PRN (16:30)
[2022-08-21 17:01] LABS: PLATELET ESTIMATE NORMAL
[2022-08-21] MEDS: KCL 20MEQ/100ML PREMIX 100 ML IV SCH ×2 (17:20→20:50)
[2022-08-21] MEDS: PROPOFOL 10MG/ML 100ML 100 ML IV PRN ×2 (17:21→22:15)
[2022-08-21] MEDS ORDERED: WARFARIN SODIUM 3MG TABLET PO SCH (18:00)
[2022-08-21] MEDS: ATORVASTATIN CALCIUM 20MG TABLET PO SCH (20:25)
[2022-08-21] MEDS: LATANOPROST 0.005% OPHTH DROPS 2.5ML EACHEYE SCH (20:31)
[2022-08-22] VITALS (56 sets, daily range): BP systolic 84–181; BP diastolic 37–96
[2022-08-22] MEDS: MIDAZOLAM HCL 100 MG in SODIUM CHLORIDE 0.9% 100 ML IV PRN ×2
[2022-08-22] MEDS: FENTANYL 2500MCG/250ML PMX 250 ML IV PRN (00:11)
[2022-08-22] MEDS: IPRATROPIUM/ALBUTEROL 0.5-3(2.5)MG/3ML NEB HHN SCH ×3 (01:36→14:04)
[2022-08-22] MEDS: PROPOFOL 10MG/ML 100ML 100 ML IV PRN (03:47)
[2022-08-22] MEDS: METHYLPREDNISOLONE SOD SUCC 125 MG/2 ML VIAL IV SCH (06:05)
[2022-08-22 06:16] LABS: HEMATOCRIT. 22.7 % (36.0-48.0); MEAN CORPUSCULAR HEMOGLOBIN 22.6 pg (28.0-32.0); MEAN PLATELET VOLUME 11.4 fl (7.4-10.4); PLATELET 170 x1000/uL (130-400); RED BLOOD CELL COUNT 3.11 mill/uL (4.2-5.4); RED CELL DISTRIBUTION WIDTH 17.6 % (11.6-14.6)
[2022-08-22] MEDS: HYDRALAZINE HCL 100MG TABLET PO SCH (06:18)
[2022-08-22 06:22] LABS: INR 3.3
[2022-08-22 07:40] LABS: PLATELET ESTIMATE NORMAL
[2022-08-22] MEDS: BLOOD SUGAR DIAGNOSTIC STRIP TEST SCH ×2 (08:15→13:20)
[2022-08-22 08:25] LABS: BG BASE EXCESS 5.8 mmol/L (-2.0-2.0); BG CARBOXYHEMOGLOBIN 0.7 % (0.5-1.5); BG DEOXYHEMOGLOBIN 11.7 % (0.0-5.0); BG FRACTION INSPIRED OXYGEN 100; BG HCO3 ACT 31.5 mmol/L (22.0-26.0); BG METHEMOGLOBIN 0.3 % (0.0-1.5); BG OXYGEN SATURATION 88.2 % (92.0-98.5); BG OXYHEMOGLOBIN 87.3 % (94.0-97.0); BG PCO2 53.2 mmHg (35.0-45.0); BG PO2 59.3 mmHg (75.0-100.0); BG SAMPLE SITE RIGHT RADIAL; BG TOTAL HEMOGLOBIN 7.6 g/dL (12.0-18.0); BG VENT MODE VENT - PRVC
[2022-08-22] MEDS ORDERED: METOLAZONE 2.5MG TABLET PO NR (08:30)
[2022-08-22] MEDS: AMIODARONE HCL 900 MG in DEXT 5% WATER 482 ML IV PRN (08:34)
[2022-08-22] MEDS: OSELTAMIVIR 30MG CAPSULE PO SCH (08:45)
[2022-08-22] MEDS: AZTREONAM 2 GM in DEXT 5% WATER 100 ML IV SCH (08:45)
[2022-08-22] MEDS: ASPIRIN 81MG TABLET PO SCH (08:45)
[2022-08-22] MEDS: NAPHAZOLINE HCL/PHENIR MAL OPHTH SOLN 15ML EACHEYE SCH (08:47)
[2022-08-22] MEDS: INSULIN LISPRO 100 UNITS/ML SUBCUT SCH ×2 (08:47→13:28)
[2022-08-22] MEDS: METOPROLOL TARTRATE 25MG TABLET PO SCH (08:48)
[2022-08-22] MEDS: DORZOLAMIDE 2% OPHTH 10 ML BOTTLE EACHEYE SCH (08:48)
[2022-08-22] MEDS: AMLODIPINE 5MG TABLET PO SCH (08:48)
[2022-08-22] MEDS ORDERED: PANTOPRAZOLE SODIUM 40 MG/VIAL IV SCH (09:00)
[2022-08-22] MEDS ORDERED: INSULIN REGULAR (HUMULIN R) 300UNITS/3ML VIAL SUBCUT NR ×2 (09:21→13:15)
[2022-08-22] MEDS ORDERED: BUMETANIDE 1MG/4ML VIAL IV SCH (09:30)
[2022-08-22] MEDS ORDERED: INSULIN GLARGINE 100 UNITS/ML SUBCUT SCH ×2 (10:00)
[2022-08-22] MEDS ORDERED: VANCOMYCIN 1,750 MG in DEXT 5% WATER 500 ML IV NR (13:00)
[2022-08-22] MEDS ORDERED: DOPAMINE 400MG/250ML PREMIX 250 ML IV PRN (15:00)
== END 2022-08-22 15:26 | DRG 871 ==
LOC: ER 11:06 → 5EST 13:07 → EDBEDREQ 13:15 → EDBEDREQSVC 13:15 → EDBEDREQTM 13:15 → EDBEDREQSVC 17:39 → CVICU 08-19 16:20
PROVIDERS: ADMIT Hospitalist; ATTEND Hospitalist
PROC: 0BH17EZ Insertion of Endotracheal Airway into Trachea, Via Natural or Artificial Opening (ICD-10-PCS; principal; 2022-08-19)
PROC: 5A1945Z Respiratory Ventilation, 24-96 Consecutive Hours (ICD-10-PCS; 2022-08-19)
PROC: 5A12012 Performance of Cardiac Output, Single, Manual (ICD-10-PCS; 2022-08-22)
DX: A41.89 Other specified sepsis (principal); I50.33 Acute on chronic diastolic (congestive) heart failure; J12.9 Viral pneumonia, unspecified; J10.08 Influenza due to other identified influenza virus with other specified pneumonia; R65.21 Severe sepsis with septic shock; J80 Acute respiratory distress syndrome; J44.1 Chronic obstructive pulmonary disease with (acute) exacerbation; I13.0 Hypertensive heart and chronic kidney disease with heart failure and stage 1 through stage 4 chronic kidney disease, or unspecified chronic kidney disease; Z68.41 Body mass index [BMI] 40.0-44.9, adult; E44.0 Moderate protein-calorie malnutrition; J44.0 Chronic obstructive pulmonary disease with (acute) lower respiratory infection; N18.9 Chronic kidney disease, unspecified; D50.9 Iron deficiency anemia, unspecified; E11.22 Type 2 diabetes mellitus with diabetic chronic kidney disease; M19.90 Unspecified osteoarthritis, unspecified site; I48.0 Paroxysmal atrial fibrillation; G47.33 Obstructive sleep apnea (adult) (pediatric); E87.6 Hypokalemia; E78.5 Hyperlipidemia, unspecified; H40.9 Unspecified glaucoma; I05.0 Rheumatic mitral stenosis; E88.09 Other disorders of plasma-protein metabolism, not elsewhere classified; D63.1 Anemia in chronic kidney disease; E66.9 Obesity, unspecified; I49.3 Ventricular premature depolarization; I05.8 Other rheumatic mitral valve diseases; Z99.81 Dependence on supplemental oxygen; Z88.0 Allergy status to penicillin; Z20.822 Contact with and (suspected) exposure to COVID-19; Z83.3 Family history of diabetes mellitus; Z82.49 Family history of ischemic heart disease and other diseases of the circulatory system; Z79.899 Other long term (current) drug therapy
CPT/HCPCS: 31500; 36415; 36573; 36600; 71045; 80048; 80053; 80061; 80202; 80305; 81003; 82375; 82550; 82553; 82607; 82746; 82805; 82962; 83036; 83540; 83550; 83605; 83735; 83880; 84100; 84145; 84439; 84443; 84478; 84484; 85025; 87070; 87077; 87186; 87426; 87804; 93005; 93970; 94003; 94640; 94660; 99285; C1725; C9113; J0282; J1265; J1644; J1815; J1940; J1956; J2250; J2370; J2704; J2920; J2930; J3010; J3370; J3480; J3490; J7050; J7060